=== PATIENT | male | born 1940 | race Caucasian/White ===

== ENCOUNTER 2017-04-04 23:31 | Emergency (ER) | payer MEDICARE, BC ==
[~2017-04-04 23:31] MED LIST: AMLODIPINE BESY1 TAB PO; AMLODIPINE BESY10 MG PO; ANTIVERT12.5 MG PO; ANTIVERT25 MG PO; COUMADIN4 M2 PO; COUMADIN7.5 M1 PO; K-Dur 20MEQ20 MEQ PO; K-TAB20 MEQ PO; LASIX40 MG PO; LISINOPRIL/HCTZ1 TA1 PO; LISINOPRIL/HCTZ1 TA3 PO; LISINOPRIL2.5 MG PO; LOTRISONE CREAM15 GM TP; MELOXICAM7.5 MG PO; METOPROLOL SUCC50 M2 PO; METOPROLOL SUCC50 MG PO; NEXIUM40 MG PO; NORVASC10 MG PO; PANTOPRAZOLE40 MG PO; PERCOCET 325 MG1 TA6 PO; POTASSIUM20 MEQ PO; PRAVACHOL40 MG PO; PRAVASTATIN SOD40 MG PO; PRILOSEC20 MG PO; VITAMIN D5000 I3 PO; VITAMIN D5000 IU PO; WARFARIN4 MG PO
[2017-04-04 23:36] VITALS: BP 155/78
[2017-04-05 00:17] LABS: BILIRUBIN 1+ (NEGATIVE); BLOOD 3+ (NEGATIVE); CLARITY CLOUDY (CLEAR); COLOR BROWN (YELLOW); GLUCOSE NEGATIVE (NEGATIVE); KETONE TRACE (NEGATIVE); LEUKO ESTERASE NEGATIVE (NEGATIVE); NITRITE POSITIVE (NEGATIVE); PROTEIN 3+ (NEGATIVE); SPECIFIC GRAVITY >= 1.030 (1.005-1.030)
[2017-04-05 00:35] LABS: BACTERIA 2+; RBC TNTC rbc/hpf (0-2); URINE REFLEX COMMENT YES (NO)
[2017-04-05 00:41] LABS: BASO % 0.4 % (0.0-1.0); EOS # 0.1 10*3/uL (0.0-0.4); EOS % 1.1 % (1.0-4.0); HEMATOCRIT 49.3 % (42.0-52.0); HEMOGLOBIN 15.6 g/dl (14.0-18.0); LYMPH # 1.8 10*3/uL (1.3-4.4); LYMPH % 19.3 % (27.0-41.0); MEAN CELL VOLUME 91.6 fl (80.0-94.0); MEAN CORPUSCULAR HGB CONC 31.6 g/dl (33.0-37.0); MEAN PLATELET VOLUME 10.7 fl (9.6-12.3); MONO # 0.9 10*3/uL (0.1-1.0); MONO % 9.8 % (3.0-9.0); NEUT # 6.5 10*3/uL (2.3-7.9); PLATELET COUNT AUTOMATED 197 10*3/uL (130-400); RED BLOOD COUNT 5.38 10*6/uL (4.50-5.90); RED CELL DISTRI WIDTH 13.7 % (0-14.5); WHITE BLOOD COUNT 9.5 10*3/uL (4.8-10.8)
[2017-04-05 00:52] LABS: PROTHROMBIN TIME 33.7 SECONDS (9.0-12.4)
[2017-04-05 00:57] LABS: ALBUMIN 3.2 gm/dl (3.1-4.5); ALKALINE PHOSPHATASE 85 U/L (45-117); BILIRUBIN, TOTAL 0.6 mg/dl (0.2-1.0); BUN 13 mg/dl (7-24); CARBON DIOXIDE 30 mmol/L (21-32); CHLORIDE 110 mmol/L (98-107); EST GLOM FILT AFRICAN AMERICAN > 60 ml/min; GLUCOSE 117 mg/dL (65-99); SGOT/AST 18 IU/L (3-35); SGPT/ALT 18 U/L (12-78); SODIUM 145 mmol/L (136-145); TOTAL PROTEIN 6.7 gm/dL (6.4-8.2)
[2017-04-05 00:58] LABS: TROPONIN I < 0.015 ng/ml (<0.045)
[2017-04-05] MEDS ORDERED: LEVOFLOXACIN500 MG PO (01:26)
== END 2017-04-05 02:17 | disposition home or self-care (01) ==
LOC: ED 23:31 → EDHOLD 04-05 01:21 → ED 04-05 01:21
PROVIDERS: Emergency Medicine Emergency Medical Services
DX: N39.0 Urinary tract infection, site not specified (principal); R31.9 Hematuria, unspecified; J18.9 Pneumonia, unspecified organism; I50.9 Heart failure, unspecified; Z90.49 Acquired absence of other specified parts of digestive tract; Z79.01 Long term (current) use of anticoagulants; Z79.899 Other long term (current) drug therapy

== ENCOUNTER → 2017-06-02 | Outpatient (CLI) | payer MEDICARE, BC ==
[~2017-06-02] MED LIST changes: +LEVOFLOXACIN500 MG PO
== END | disposition home or self-care (01) ==
LOC: US 17:06
DX: M79.89 Other specified soft tissue disorders (principal)

== ENCOUNTER 2017-12-03 21:09 | Inpatient (IN) | payer MEDICARE, BC ==
[~2017-12-03] VITALS: Ht 182.9 cm; Wt 133.0 kg
--- NOTE | ~2017-12-03 | WRIGHTHP ---
[place], [place] PATIENT HISTORY AND PHYSICAL EXAM NAME: NOLAN DUVALL [facility] #: [id number] UNIT #: [id number] ROOM: 408 DOCTOR: TONYA ARENAS MD BIRTHDATE: [birth year] DOS: 12/03/2017 HISTORY OF PRESENT ILLNESS: The patient is 77 years old, not known to me. The patient comes in with complaints of left-sided chest pain. He denies having any fever, any chills, any cough, any sputum production. He does not have any abdominal pain, nausea, any emesis. The patient says that he has had increased leg edema and has had Unna boot placement, but the left leg has been red for the last few days. He denies having any nausea, any emesis. PAST MEDICAL HISTORY: Significant for; 1. Benign hypertension. 2. Osteoarthritis, primary. 3. Mixed hyperlipidemia. 4. Chronic lymphedema. 5. Vitamin D deficiency. 6. Chronic atrial fibrillation. MEDICATIONS: Metoprolol 50 b.i.d., potassium 20 daily, Pravachol 40 daily, warfarin 7.5, Lotrisone cream for local application and Motrin 800 t.i.d. SOCIAL HISTORY: Nonsmoker. He has history of smoking for a few years when he was in his 20s. He denies using any alcohol, except for a couple of beers on a Thursday. He is , has 2 grown children. His father at the age of 32 of meningitis. Mom lived into the 80s and had cancer. PHYSICAL EXAMINATION: GENERAL: He is awake and alert and oriented. VITAL SIGNS: Blood pressure is 142/84, pulse of 99, respirations 20, temperature 97.9. LUNGS: Diminished breath sounds. No wheezes, rales, rhonchi heard. HEART: Regular. ABDOMEN: Obese. EXTREMITIES: Without any edema. MUSCULOSKELETAL: There is some tenderness in the left-sided chest wall on pressure. ASSESSMENT AND PLAN: 1. The rebound tenderness in the chest wall is most likely atypical chest pain, could be musculoskeletal. He is on Motrin, which I do not want to give in combination with Coumadin, so we will give him local moist heat. 2. High risk for heart disease with chest pain. Cardiology consultation has been obtained and probably will need a stress test. Echocardiogram has been ordered. 3. Left leg cellulitis. Jose Juan wrap will be ordered along with antibiotics. 4. Chronic atrial fibrillation, controlled. Protime is therapeutic. Coumadin dosage continued. [place], [place] PATIENT HISTORY AND PHYSICAL EXAM NAME: NOLAN DUVALL UNIT #: [id number] ROOM: [facility] DOCTOR: TONYA ARENAS MD BIRTHDATE: [birth year] TONYA ARENAS MD CM:HISPHYS:PATIENT HISTORY AND PHYSICAL EXAMINATION 5 9 TONYA ARENAS MD 12/04/17899 interface
[2017-12-03 21:19] VITALS: BP 157/90
[2017-12-03 21:32] LABS: BASO % 0.3 % (0.0-1.0); EOS # 0.1 10*3/uL (0.0-0.4); EOS % 0.7 % (1.0-4.0); HEMATOCRIT 48.1 % (42.0-52.0); HEMOGLOBIN 15.2 g/dl (14.0-18.0); LYMPH # 2.4 10*3/uL (1.3-4.4); LYMPH % 17.8 % (27.0-41.0); MEAN CELL VOLUME 90.8 fl (80.0-94.0); MEAN CORPUSCULAR HGB 28.7 pg (27.0-31.0); MEAN CORPUSCULAR HGB CONC 31.6 g/dl (33.0-37.0); MONO # 1.1 10*3/uL (0.1-1.0); MONO % 8.5 % (3.0-9.0); NEUT # 9.6 10*3/uL (2.3-7.9); NEUT % 72.3 % (47.0-73.0); PLATELET COUNT AUTOMATED 219 10*3/uL (130-400); RED CELL DISTRI WIDTH 14.2 % (0-14.5); WHITE BLOOD COUNT 13.3 10*3/uL (4.8-10.8)
[2017-12-03 21:37] VITALS: BP 151/94
[2017-12-03 21:42] LABS: ACT PARTIAL THROMBO TIME 36.8 SECONDS (20.8-31.5); INTERNATIONAL NORM RATIO 2.4 (2.0-3.5)
[2017-12-03 21:50] LABS: ALBUMIN 3.3 gm/dl (3.1-4.5); ALKALINE PHOSPHATASE 99 U/L (45-117); BUN 15 mg/dl (7-24); CHLORIDE 106 mmol/L (98-107); CREATININE 1.09 mg/dL (0.70-1.30); SGOT/AST 19 IU/L (3-35); SGPT/ALT 17 U/L (12-78); SODIUM 141 mmol/L (136-145); TOTAL PROTEIN 7.1 gm/dL (6.4-8.2); TROPONIN I 0.015 ng/ml (<0.045)
[2017-12-03 22:04] VITALS: BP 134/81
[2017-12-03] MEDS ORDERED: METOPROLOL SUCC50 M2 PO (22:18)
[2017-12-03] MEDS ORDERED: WARFARIN SODIU7.5 MG PO (22:20)
[2017-12-03] MEDS ORDERED: PRAVACHOL40 MG PO (22:21)
[2017-12-03] MEDS ORDERED: K-TAB20 MEQ PO (22:22)
[2017-12-03 23:45] VITALS: BP 142/84
[2017-12-04] MEDS ORDERED: IBUPROFEN600 MG PO (00:07)
[2017-12-04 08:00] VITALS: BP 137/86
[2017-12-04 12:00] VITALS: BP 130/95; BP 150/98
[2017-12-04 16:00] VITALS: BP 158/100
[2017-12-04 20:00] VITALS: BP 137/97
[2017-12-05] VITALS: BP 129/86
[2017-12-05 08:00] VITALS: BP 168/84
[2017-12-05 12:00] VITALS: BP 160/78
[2017-12-05 16:00] VITALS: BP 117/77
[2017-12-05] MEDS ORDERED: KEFLEX500 M1 PO (19:01)
== END 2017-12-05 19:30 | disposition home or self-care (01) | DRG 603 ==
LOC: ED 21:09 → EDHOLD 22:03 → 4E 22:46
PROVIDERS: Student in an Organized Health Care Education/Training Program
DX: L03.116 Cellulitis of left lower limb (principal); I48.2 Chronic atrial fibrillation; I11.0 Hypertensive heart disease with heart failure; I50.9 Heart failure, unspecified; R07.89 Other chest pain; M19.90 Unspecified osteoarthritis, unspecified site; E78.2 Mixed hyperlipidemia; I89.0 Lymphedema, not elsewhere classified; E66.9 Obesity, unspecified; D72.829 Elevated white blood cell count, unspecified; Z82.49 Family history of ischemic heart disease and other diseases of the circulatory system; Z79.899 Other long term (current) drug therapy; Z87.01 Personal history of pneumonia (recurrent); Z87.440 Personal history of urinary (tract) infections; Z90.49 Acquired absence of other specified parts of digestive tract; Z80.8 Family history of malignant neoplasm of other organs or systems; Z68.39 Body mass index [BMI] 39.0-39.9, adult

== ENCOUNTER 2017-12-22 22:16 | Inpatient (IN) | payer MEDICARE, BC ==
[~2017-12-22] VITALS: Ht 182.9 cm; Wt 133.0 kg
--- NOTE | ~2017-12-22 | PR ---
[place], [place] PROGRESS NOTE [id number] UNIT #: [id number] ROOM: 405 DOCTOR: TONYA ARENAS MD BIRTHDATE: [birth year] DOS: 12/26/2017 SUBJECTIVE: The patient is about the same, does not have any new complaints. PHYSICAL EXAMINATION: GENERAL: He is awake and alert and oriented, states he had a good night sleep. VITAL SIGNS: Blood pressure is 136/62, pulse of 80, respirations 19, temperature 98.5. LUNGS: Diminished breath sounds. No wheezes heard this morning. HEART: Irregular. ABDOMEN: Obese. EXTREMITIES: Jose Juan wrapping bilateral. ASSESSMENT AND PLAN: 1. Acute combination systolic, diastolic congestive heart failure, which is resolved. Chest x-ray unremarkable. 2. Adult failure to thrive with inability to ambulate, for placement to [facility] this morning. 3. Chronic atrial fibrillation with long-term use of anticoagulants. Protime on the high side. Coumadin on hold. Restart at a later date. TONYA ARENAS MD CM:PNTRANS [id number] TONYA ARENAS MD 12/26/17 2100 interface
--- NOTE | ~2017-12-22 | PR ---
[place], [place] PROGRESS NOTE [id number] UNIT #: [id number] ROOM: 405 DOCTOR: TONYA ARENAS MD BIRTHDATE: [birth year] DOS: SUBJECTIVE: The patient is doing fine without any complaints. OBJECTIVE: VITAL SIGNS: Graphic trend shows blood pressure of 143/91, pulse of 91, respirations 19, temperature 98.1. LUNGS: Clear. HEART: Irregular. ABDOMEN: Obese, soft. EXTREMITIES: Trace edema bilaterally. LABORATORY DATA: Urine culture 25,000 colonies of Proteus vulgaris, which is resistant to Ceftin, but sensitive to Bactrim. BMP: Glucose 98, BUN 14, creatinine 0.84. Electrolytes were normal. Protime has INR of 4.6. Blood cultures, no bacterial growth. ASSESSMENT AND PLAN: 1. Adult failure to thrive. The patient is awaiting placement to [place] after the 3 nights stay. 2. Combined systolic, diastolic congestive heart failure, improving. 3. The patient has already been evaluated by Dr. Lundberg and he does not feel there is an underlying pneumonia, so no antibiotics need to be given. Urinalysis is only showing 25,000 colonies, most likely not an underlying infection, so does not need to be treated with antibiotics. 4. Benign hypertension, controlled. 5. Chronic atrial fibrillation, controlled, but since the protime is high, Coumadin is on hold. TONYA ARENAS MD CM:PNTRANS TONYA ARENAS MD 12/25/1735 interface
--- NOTE | ~2017-12-22 | CON ---
[place], [place] REPORT OF CONSULTATION NAME: NOLAN DUVALL [facility] #: [id number] UNIT #: [id number] ROOM: 405 DOCTOR: ROSIE DAVENPORT MD BIRTHDATE: [birth year] DOS: 12/24/2017 PULMONARY CONSULTATION, ASSESSMENT AND MANAGEMENT CONSULTATION REQUESTED BY: Dr. Lundberg. REASON FOR CONSULTATION: For assessment of symptoms of a right lower lobe pneumonia. HISTORY OF PRESENT ILLNESS: This is a 77-year-old white male who has been admitted under care of Dr. Lundberg on the date of 12/23/2017. The patient has been admitted to the hospital. He has been noted with having symptoms of pain, which has been described in the lower back for this patient with gradual worsening. The pain has been reported without radiation. The patient does have some symptoms of shortness of breath. He does have symptoms of coughing with wheezing as well. The cough has been noted mostly nonproductive. He denies symptoms of chest pain or any hemoptysis. Because of progressive weakness, the patient has been noted recurrent fall at home. He has been assessed and reported with pneumonia in the right lower lobe as well. He was also noted with edema of the extremities. REVIEW OF SYSTEMS: CONSTITUTIONAL: The patient was reporting symptoms of fatigue, but there were no symptoms of fever or chills reported. EYES: Denies burning, redness, tenderness, discharge. EAR, NOSE, THROAT SYMPTOM: Denies sore throat, hoarseness, otalgia, postnasal drainage or epistaxis. CARDIOVASCULAR: Increased edema of the lower extremities, symptoms of palpitations or any angina pain. GASTROINTESTINAL SYMPTOMS: Denies dysphagia, nausea, vomiting, diarrhea, abdominal pain, hematemesis, melena or hematochezia. Denies abnormal weight loss, history of chronic obesity. He denies symptoms of dysphagia. GENITOURINARY SYMPTOMS: Denies dysuria, suprapubic pain or hematuria. MUSCULOSKELETAL SYMPTOM: No acute joint pain, redness, or tenderness. Noted without any acute deformities. SKIN: Denies lesions or rashes. CENTRAL NERVOUS SYSTEM: Denies dizziness, headache, diplopia, but noted generalized fatigue and weakness. Denies symptoms of seizures or tingling sensation of the lower extremities. Remaining systems were reviewed with the patient, they were noted all negative. PAST MEDICAL HISTORY: 1. The patient was known with history of chronic obesity, BMI of 39. 2. History of hypercholesterolemia. 3. Chronic atrial fibrillation. 4. Essential hypertension. 5. Gastroesophageal reflux. 6. History of vertigo. 7. History of congestive heart failure, diastolic dysfunction. [place], [place] REPORT OF CONSULTATION NAME: NOLAN DUVALL UNIT #: [id number] ROOM: 405 DOCTOR: ROSIE DAVENPORT MD BIRTHDATE: [birth year] SOCIAL HISTORY: The patient reported , has 2 children. Smoking for the patient was noted since teenager, a pack of cigarettes per day that was discontinued 20 years ago. History of alcohol use, illicit drug use. PAST SURGICAL HISTORY: Reported for laparoscopic cholecystectomy. MEDICATIONS: Current administered medication noted use of potassium chloride, omeprazole, Colace, simvastatin, metoprolol succinate, and other p.r.n. medication for medical management and other symptoms. DRUG ALLERGY HISTORY: Noted no known drug allergies. PHYSICAL EXAMINATION: GENERAL: A 77-year-old male who has been currently lying on the bed, comfortable without any distress. Height of 6 feet, weight of 293 pounds, BMI 39.8. VITAL SIGNS: For the patient, which has been recorded showed the temperature noted as normal since admission. The respiratory recorded 18-20, heart rate of 89-91, blood pressure 130/77-141/85. Intake for the patient as 1400 mL and output 600 mL recorded without Jane catheter. Pulse oxygen saturation of the patient on room air was 88% on 3 liters cannula 98%. HEENT: Head was atraumatic. Moderate obese. NECK: Supple. Decreased posterior pharyngeal space. CARDIOVASCULAR: S1, S2 is audible. LUNGS: Noted with moderate decreased breath sounds for the patient with questionable crackles in the right lung base. ABDOMEN: Soft, nontender with obesity. EXTREMITIES: The patient currently wrapped with the Jose Juan bandage secondary to edema. Further could not perform because of that. MUSCULOSKELETAL: No acute deformities was visible. SKIN: Visible skin, otherwise noted without any lesions or any rashes. CENTRAL NERVOUS SYSTEM: Limited examination; however, generally weak and fatigue was noted. LABORATORY DATA: CBC for the patient of 12/22/2017 was noted with normal WBC count, hemoglobin 12.9 and hematocrit 41.9, platelet count 354,000. PT/PTT for the patient was noted with INR of 4.8, which is about the therapeutic range with PTT 44.7. The CMP of the patient 12/22/2017, normal BUN and creatinine. AST of 53. Alkaline phosphatase 273. Lipase was 974. C-reactive protein 2.96, normal troponin. BMP of the patient that was done this morning showed normal BUN and creatinine, glucose 119, CO2 34. The blood culture for this patient, which was done 2 sets on 12/22/2017 was noted without any abnormal bacterial growth so far. The urine culture of the patient was noted with light gram-negative bacilli 25,000 colony forming units. The chest x-ray personally reviewed for this patient shows somewhat hyperinflation for the patient noted with a small area of atelectasis is likely and/or infiltration. There was no evidence of large pulmonary infiltration. IMPRESSION: 1. The patient who has been currently admitted to the hospital, mostly with the [place], [place] REPORT OF CONSULTATION NAME: NOLAN DUVALL UNIT #: [id number] ROOM: 405 DO[facility] B[facility] [birth year] pain in the lower back for the patient with small area of atelectasis. The current findings were not noted consistent with acute pneumonia. 2. Edema of the lower extremity related to congestive heart failure, diastolic dysfunction is causing mainly the shortness of breath. 3. Clinical assessment possibility of chronic obstructive pulmonary disease would be considered with current chest x-ray, assessment for the patient and the tobacco use. 4. History of other medical problem. The patient has been noted previously, currently being treated appropriately with all the necessary medication. 5. History of atrial fibrillation, treated with beta fernanda, but the patient was not getting any anticoagulation long-term for the patient at this time, reason was unknown. PLAN OF MANAGEMENT: At this time, the patient would not be requiring any treatment for the patient at this time and the finding does not appear to be consistent with acute pneumonia. Bronchodilator will be ordered for the patient to help clear up the atelectasis. Repeat another chest x-ray in the morning. Mucinex will be ordered for this patient as well to help clear up secretions. Other supportive therapy, plan of management and care plan. Additional treatment changes if necessary will be done after the assessment for the patient of the chest x-ray. Symptomatic management and other problem of the patient will be continued including the edema of the lower extremities. ROSIE GODINEZ MD CM:CONSTR:REPORT OF CONSULTATION 1447 12/25/17 0206 interface
--- NOTE | ~2017-12-22 | PR ---
[place], [place] PROGRESS NOTE NAME: NOLAN DUVALL UNIT #: [id number] ROOM: 405 DOCTOR: BRANDON GRAF MD BIRTHDATE: [birth year] DOS: 12/24/2017 SUBJECTIVE: The patient is very weak, still falling at the hospital. OBJECTIVE: VITAL SIGNS: Blood pressure 145/83, heart rate 95 beats per minute, breathing 20 times per minute, temperature 98.4 degrees Fahrenheit. GENERAL APPEARANCE: The patient is alert and oriented x 3, in no visible distress, except for morbid obesity and generalized weakness. HEENT AND NECK: Exam within normal limits. CARDIOVASCULAR SYSTEM: Heart rate is regular in rate and rhythm. S1 and S2 normally audible. LUNGS: Clear to auscultation. ABDOMEN: Soft, nontender. No obvious organomegaly. Bowel sounds are present. EXTREMITIES: Without significant cyanosis or edema. IMPRESSION AND PLAN: 1. The patient with old age, morbid obesity, generalized weakness and advanced adult failure to thrive with recurrent falls. Finally, the patient is agreeing to go to [facility] facility for rehabilitation. The patient has hematoma in the right flank from falling at home. 2. The patient working with Physical Therapy for adult failure to thrive. 3. Acute combined systolic, diastolic type congestive heart failure with some increased shortness of breath. Dr. Lundberg, the supervisor laundry will evaluate him. 4. Right lower lobe patchy infiltrate, compatible with pneumonia. Dr. Lundberg to evaluate. 5. Elevated lipase level, repeated today, from uncertain etiology because the patient is not complaining of any pains in the pancreatic area. 6. INR elevated at 4.9, is improving towards therapeutic range with Coumadin being on hold. 7. Chronic atrial fibrillation. The patient with multiple falls. He is not a good candidate for treatment with anticoagulation anymore because he is falling and also has a hematoma in the right flank area. The patient's Coumadin has been stopped. 8. Benign essential hypertension, with controlled blood pressures. 9. Mixed hyperlipidemia, followed and treated. 10. The patient working with Physical Therapy. [place], [place] PROGRESS NOTE NAME: NOLAN DUVALL UNIT #: [id number] ROOM: 405 DOCTOR: BRANDON GRAF MD BIRTHDATE: [birth year] BRANDON GRAF MD CM:MAR 17 [id number] BRANDON GRAF MD 12/24/171954 interface
--- NOTE | ~2017-12-22 | DS ---
[place], [place] DISCHARGE SUMMARY [id number] #: [id number] ROOM: 405 DOCTOR: TONYA ARENAS MD BIRTHDATE: [birth year] DOS: 12/26/2017 EXPECTED DATE OF DISCHARGE: 12/26/2017 after 3-night stay. DIAGNOSES: 1. Adult failure to thrive. 2. Inability to ambulate. 3. Recent negative stress test. 4. Chronic atrial fibrillation, on long-term use of anticoagulants. The patient's protime is elevated, Coumadin on hold. Repeat protime to be ordered on Thursday morning, then consider restarting the medicine. 5. Benign hypertension. 6. Morbid obesity. 7. Mixed hyperlipidemia. DISCHARGE MEDICATIONS: Lotrisone cream for local application, metoprolol 50 b.i.d., Pravachol 40 daily, potassium 40 daily, omeprazole 20 daily, warfarin on hold. HOSPITAL COURSE: A 77-year-old patient was brought to the Emergency Room with difficulty ambulating. Please refer to H and P dictated by Dr. Lundberg for details. After admission, the patient had blood cultures and urine cultures ordered. Blood cultures come back negative. Urine culture showed 25,000 colonies, which is not considered an infection. Chest x-ray showed right lower lobe atelectasis but Dr. Lundberg felt this is not a pneumonia, so the patient does not need to be on antibiotics. Labs all fairly within normal limits. The patient has been encouraged to go to a rehab and he is agreeable to go to [place], waiting for precertification. After the 3 nights' stay is over, the patient should be able to go to correction in the morning. TONYA ARENAS MD CM:DISCHARG [id number] TONYA ARENAS MD 12/25/1716 interface
--- NOTE | ~2017-12-22 | WRIGHTHP ---
[place], [place] PATIENT HISTORY AND PHYSICAL EXAM NAME: NOLAN DUVALL [facility] #: [id number] UNIT #: [id number] ROOM: 405 DOCTOR: BRANDON GRAF MD BIRTHDATE: [birth year] DOS: 12/23/2017 HISTORY OF PRESENT ILLNESS: The patient is a 77-year-old gentleman with a past medical history of: 1. Morbid obesity. 2. Adult failure to thrive. 3. Benign essential hypertension. 4. Mixed hyperlipidemia. 5. Stasis dermatitis of both legs, which is chronic. 6. Vitamin D deficiency. 7. Chronic atrial fibrillation. 8. Mixed systolic, diastolic type CHF. The patient presented to the Emergency Department at [facility] with progressively increasing shortness of breath, generalized weakness and cough with purulent sputum. The patient was seen in the Emergency Department and found to have patchy infiltrate in the right upper lobe on the chest x-ray. The patient was having difficulty in walking and multiple falls at home. The patient was admitted to [facility] and he is complaining of generalized weakness and shortness of breath, but no chest pains, no dizziness or fainting episodes. No other GI or urinary symptoms. REVIEW OF SYSTEMS: LUNGS: Some increasing shortness of breath. GASTROINTESTINAL: No nausea, vomiting, diarrhea or constipation. CARDIOVASCULAR: No chest pains or palpitations. FAMILY HISTORY: Noncontributory. SOCIAL HISTORY: , lives at home with his . ALLERGIES: No known drug allergies. MEDICATIONS: Pravastatin, potassium, omeprazole, Colace, metoprolol. PHYSICAL EXAMINATION: GENERAL: Alert and oriented x 3, but a poor historian, in no visible distress, morbidly obese. VITAL SIGNS: Blood pressure 115/93, heart rate 82 beats per minute, breathing 20 times per minute, temperature 99.9 degrees Fahrenheit. HEENT AND NECK: Extraocular movements are intact. Sclerae are anicteric. Oral mucosa is moist and clean. No obvious facial weakness. Neck is supple without any lymphadenopathy. No thyromegaly. No JVD. No carotid arterial bruits. LUNGS: Clear to auscultation, somewhat decreased breath sounds, except for bibasilar crackles. CARDIOVASCULAR SYSTEM: Heart rate is irregularly irregular in rate and rhythm. S1, S2 audible. Heart sounds are distant. ABDOMEN: Obese. No obvious organomegaly. Bowel sounds are present. EXTREMITIES: Pigmentary changes, skin changes, which are chronic in both legs with 2-3+ bilateral leg and pedal edema. [place], [place] PATIENT HISTORY AND PHYSICAL EXAM NAME: NOLAN DUVALL UNIT #: [id number] ROOM: 405 DOCTOR: BRANDON GRAF MD BIRTHDATE: [birth year] CENTRAL NERVOUS SYSTEM: Alert and oriented x 3. Cranial nerves II-XII are intact. Speech is normal. The patient is able to move all extremities. Normal muscle strength. Deep tendon reflexes are equal on both sides. Plantars were downgoing. LABORATORY DATA: Normal serum electrolytes. Alkaline phosphatase of 273, lipase 974. C-reactive protein elevated to 2.9. Troponin I level was normal. INR elevated at 4.8. Hemoglobin 12.9. Lactic acid level was normal. IMPRESSION: 1. The patient with old age, morbid obesity, generalized weakness and adult failure to thrive with recurrent falls at home. The patient to work with Physical Therapy. 2. Stable Helper consult obtained for care home facility for physical rehabilitation. 3. Acute combined systolic, diastolic type congestive heart failure, to be evaluated and managed by Dr. Lundberg, the weeder has been consulted. 4. Right lower lobe patchy infiltrate, compatible with pneumonia, to be evaluated by Dr. Lundberg, the weeder and treated accordingly. There is no leukocytosis. The patient did have low-grade fever. 5. Some elevation of lipase without significant abdominal pains. I will repeat a lipase level. Uncertain etiology. 6. Mixed hyperlipidemia, to be followed and treated. 8. Chronic atrial fibrillation. The patient is anticoagulated with Coumadin. INR is elevated, so Coumadin is on hold and we will check protimes daily. 6. Benign essential hypertension. Blood pressure is to be monitored, treated and controlled. BRANDON GRAF MD CM:HISPHYS:PATIENT HISTORY AND PHYSICAL EXAMINATION 1715 06 BRANDON GRAF MD 12/23/17 180 interface
[~2017-12-22 22:16] MED LIST changes: +COUMADIN3 M1 PO; +IBUPROFEN600 MG PO; +KEFLEX500 M1 PO
[2017-12-22 22:20] VITALS: BP 144/100
[2017-12-22 23:20] LABS: BASO % 0.3 % (0.0-1.0); EOS # 0.1 10*3/uL (0.0-0.4); EOS % 0.9 % (1.0-4.0); HEMATOCRIT 41.9 % (42.0-52.0); HEMOGLOBIN 12.9 g/dl (14.0-18.0); LYMPH # 1.1 10*3/uL (1.3-4.4); LYMPH % 12.1 % (27.0-41.0); MEAN CELL VOLUME 92.7 fl (80.0-94.0); MEAN CORPUSCULAR HGB 28.5 pg (27.0-31.0); MEAN CORPUSCULAR HGB CONC 30.8 g/dl (33.0-37.0); MEAN PLATELET VOLUME 10.8 fl (9.6-12.3); MONO # 1.1 10*3/uL (0.1-1.0); NEUT # 6.6 10*3/uL (2.3-7.9); NEUT % 72.2 % (47.0-73.0); PLATELET COUNT AUTOMATED 354 10*3/uL (130-400); RED BLOOD COUNT 4.52 10*6/uL (4.50-5.90); RED CELL DISTRI WIDTH 15.8 % (0-14.5); WHITE BLOOD COUNT 9.1 10*3/uL (4.8-10.8)
[2017-12-22 23:36] LABS: ACT PARTIAL THROMBO TIME 44.7 SECONDS (20.8-31.5)
[2017-12-22 23:38] LABS: INTERNATIONAL NORM RATIO 4.8 (2.0-3.5)
[2017-12-22 23:39] LABS: ALBUMIN 3.1 gm/dl (3.1-4.5); ALKALINE PHOSPHATASE 273 U/L (45-117); BUN 18 mg/dl (7-24); CHLORIDE 109 mmol/L (98-107); CREATININE 1.16 mg/dL (0.70-1.30); LIPASE 974 U/L (73-393); POTASSIUM 4.4 mmol/L (3.5-5.1); SGOT/AST 52 IU/L (3-35); SGPT/ALT 64 U/L (12-78); SODIUM 145 mmol/L (136-145); TOTAL PROTEIN 6.6 gm/dL (6.4-8.2); TROPONIN I 0.018 ng/ml (<0.045)
[2017-12-23 01:28] LABS: BILIRUBIN 1+ (NEGATIVE); BLOOD 3+ (NEGATIVE); CLARITY SL CLOUDY (CLEAR); COLOR YELLOW (YELLOW); GLUCOSE NEGATIVE (NEGATIVE); KETONE TRACE (NEGATIVE); LEUKO ESTERASE NEGATIVE (NEGATIVE); NITRITE NEGATIVE (NEGATIVE); PH 5.5 (5.0-9.0); SPECIFIC GRAVITY 1.025 (1.005-1.030)
[2017-12-23 01:30] VITALS: BP 112/89
[2017-12-23 01:36] LABS: EPITHELIAL CELLS 15-20; RBC 41-50 rbc/hpf (0-2)
[2017-12-23] MEDS ORDERED: PRILOSEC20 M1 PO (01:49)
[2017-12-23 08:00] VITALS: BP 148/94
[2017-12-23 12:00] VITALS: BP 115/93
[2017-12-23 16:00] VITALS: BP 139/84
[2017-12-23 20:00] VITALS: BP 138/73
[2017-12-24] VITALS: BP 137/70
[2017-12-24 06:01] LABS: BUN 19 mg/dl (7-24); CHLORIDE 109 mmol/L (98-107); CREATININE 1.07 mg/dL (0.70-1.30); LIPASE 669 U/L (73-393); POTASSIUM 4.5 mmol/L (3.5-5.1); SODIUM 147 mmol/L (136-145)
[2017-12-24 06:12] LABS: BASO % 0.3 % (0.0-1.0); EOS # 0.1 10*3/uL (0.0-0.4); EOS % 1.8 % (1.0-4.0); HEMATOCRIT 38.7 % (42.0-52.0); HEMOGLOBIN 11.6 g/dl (14.0-18.0); LYMPH # 1.4 10*3/uL (1.3-4.4); LYMPH % 19.1 % (27.0-41.0); MEAN CORPUSCULAR HGB 28.8 pg (27.0-31.0); MONO # 1.1 10*3/uL (0.1-1.0); MONO % 14.8 % (3.0-9.0); NEUT # 4.5 10*3/uL (2.3-7.9); NEUT % 62.3 % (47.0-73.0); PLATELET COUNT AUTOMATED 285 10*3/uL (130-400); RED BLOOD COUNT 4.03 10*6/uL (4.50-5.90); RED CELL DISTRI WIDTH 15.9 % (0-14.5); WHITE BLOOD COUNT 7.2 10*3/uL (4.8-10.8)
[2017-12-24 07:20] LABS: INTERNATIONAL NORM RATIO 4.9 (2.0-3.5)
[2017-12-24 08:00] VITALS: BP 142/74
[2017-12-24 12:00] VITALS: BP 141/85
[2017-12-24 16:00] VITALS: BP 145/83
[2017-12-24 20:04] VITALS: BP 132/86
[2017-12-25] VITALS: BP 143/91
[2017-12-25 07:43] LABS: BUN 14 mg/dl (7-24); CHLORIDE 107 mmol/L (98-107); CREATININE 0.84 mg/dL (0.70-1.30); POTASSIUM 3.9 mmol/L (3.5-5.1); SODIUM 147 mmol/L (136-145)
[2017-12-25 07:56] LABS: INTERNATIONAL NORM RATIO 4.6 (2.0-3.5)
[2017-12-25 08:00] VITALS: BP 144/99
[2017-12-25] MEDS ORDERED: CEFUROXIME AXE250 MG PO (08:20)
[2017-12-25 12:00] VITALS: BP 155/97
[2017-12-25 16:00] VITALS: BP 150/94
[2017-12-25 20:00] VITALS: BP 128/61
[2017-12-26] VITALS: BP 136/62
[2017-12-26 07:32] LABS: BUN 14 mg/dl (7-24); CHLORIDE 106 mmol/L (98-107); CREATININE 0.86 mg/dL (0.70-1.30); POTASSIUM 3.9 mmol/L (3.5-5.1); SODIUM 144 mmol/L (136-145)
[2017-12-26 07:36] LABS: INTERNATIONAL NORM RATIO 3.3 (2.0-3.5)
[2017-12-26 07:59] VITALS: BP 140/64
== END 2017-12-26 11:47 | disposition other institution (70) | DRG 291 ==
LOC: ED 22:16 → EDHOLD 12-23 00:15 → 4E 12-23 00:15
PROVIDERS: Internal Medicine; Nurse Practitioner Family
DX: I50.41 Acute combined systolic (congestive) and diastolic (congestive) heart failure (principal); J96.20 Acute and chronic respiratory failure, unspecified whether with hypoxia or hypercapnia; I48.2 Chronic atrial fibrillation; J44.1 Chronic obstructive pulmonary disease with (acute) exacerbation; J98.11 Atelectasis; E66.01 Morbid (severe) obesity due to excess calories; Z79.01 Long term (current) use of anticoagulants; I11.0 Hypertensive heart disease with heart failure; R62.7 Adult failure to thrive; E78.2 Mixed hyperlipidemia; I87.2 Venous insufficiency (chronic) (peripheral); E55.9 Vitamin D deficiency, unspecified; F17.210 Nicotine dependence, cigarettes, uncomplicated; I87.8 Other specified disorders of veins; E78.00 Pure hypercholesterolemia, unspecified; K21.9 Gastro-esophageal reflux disease without esophagitis; Z68.39 Body mass index [BMI] 39.0-39.9, adult; Z91.81 History of falling; Z87.440 Personal history of urinary (tract) infections; Z87.01 Personal history of pneumonia (recurrent); Z79.899 Other long term (current) drug therapy; Z90.49 Acquired absence of other specified parts of digestive tract; Z86.14 Personal history of Methicillin resistant Staphylococcus aureus infection; Z80.9 Family history of malignant neoplasm, unspecified; S30.1XXA Contusion of abdominal wall, initial encounter; W18.39XA Other fall on same level, initial encounter; Y93.89 Activity, other specified; Y92.89 Other specified places as the place of occurrence of the external cause; Y99.8 Other external cause status

== ENCOUNTER 2018-06-01 14:07 | Inpatient (IN) | payer MEDICARE, BC ==
[~2018-06-01] VITALS: Ht 182.8 cm; Wt 119.4 kg
--- NOTE | ~2018-06-01 | PR ---
[place], [place] PROGRESS NOTE NAME: NOLAN DUVALL UNIT #: [id number] ROOM: 408 DOCTOR: BRANDON GRAF MD BIRTHDATE: [birth year] DOS: 06/03/2018 SUBJECTIVE: The patient is breathing much better and his swelling in his feet has improved. OBJECTIVE: VITAL SIGNS: Blood pressure 156/55, heart rate 70 beats per minute, breathing 20 times per minute, temperature 98.2 degrees Fahrenheit. GENERAL APPEARANCE: Morbid obesity, generalized weakness. HEENT AND NECK: Exam within normal limits. CARDIOVASCULAR SYSTEM: Heart rate is regular in rate and rhythm. S1 and S2 normally audible. LUNGS: Clear to auscultation. ABDOMEN: Soft, nontender. No obvious organomegaly. Bowel sounds are present. EXTREMITIES: Ankle and foot edema have improved. IMPRESSION: 1. The patient with acute congestive heart failure, increasing leg and pedal edema, all improving. 2. Acute over chronic mixed systolic, diastolic congestive heart failure, treated with IV Bumex, followed by Cardiology. 3. Advanced adult failure to thrive. The patient working with physical therapy. 4. Tinea pedis, some cellulitis and onychomycosis, evaluated by Podiatry and Infectious Diseases, being treated. 5. Gastroesophageal reflux disease and esophagitis, asymptomatic with omeprazole. 6. Chronic atrial fibrillation with controlled heart rates. The patient anticoagulated with apixaban. 7. Chronic hypokalemia, treated with extra potassium supplements. 8. Advanced adult failure to thrive. The patient going for longterm facility tomorrow after discharge from the hospital. 9. Mixed hyperlipidemia, treated with simvastatin. [place], [place] PROGRESS NOTE NAME: NOLAN DUVALL UNIT #: [id number] ROOM: 408 DOCTOR: BRANDON GRAF MD BIRTHDATE: [birth year] BRANDON GRAF MD CM:PNTRANS [id number] BRANDON GRAF MD 06/04/18 0331 interface
--- NOTE | ~2018-06-01 | DS ---
[place], [place] DISCHARGE SUMMARY NAME: NOLAN DUVALL [facility] #: [id number] UNIT #: [id number] ROOM: 408 DOCTOR: BRANDON GRAF MD BIRTHDATE: [birth year] DOS: 06/04/2018 DISCHARGE DIAGNOSES: 1. 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 2. Advanced adult failure to thrive. 3. Morbid obesity. 4. Tinea pedis and onychomycosis involving both feet. 5. Gastroesophageal reflux disease and esophagitis. 6. Chronic atrial fibrillation. 7. Chronic hypokalemia. 8. Advance adult failure to thrive. 9. Mixed hyperlipidemia. 10. Vitamin D deficiency. 11. History of cholecystectomy for cholelithiasis and choledocholithiasis. 12. Stasis dermatitis and chronic leg and pedal edema involving both legs. 13. Benign essential hypertension. HOSPITAL COURSE: The patient was admitted when sent over by his foot doctors for increased swelling in his feet. The patient was found to be in acute congestive heart failure and hypoxemic. The patient admitted and started on diuresis with IV Bumex and his congestive heart failure including leg edema improved and he is being discharged to senior care for rehabilitation. The patient has mixed systolic, diastolic type chronic congestive heart failure. Tinea pedis and onychomycosis treated per Infectious Disease recommendations. Advance adult failure to thrive. The patient working with physical therapy and going to [facility] for continued rehabilitation. Gastroesophageal reflux disease and esophagitis, asymptomatic with omeprazole. Chronic atrial fibrillation with controlled heart rates. The patient anticoagulated with apixaban. Benign essential hypertension, treated and controlled. Chronic hypokalemia, treated with supplements. Mixed hyperlipidemia, treated with simvastatin. LABORATORY DATA: Normal serum electrolytes. Blood sugar of 102. Normal CBC. Blood cultures were negative for DVT, venous Dopplers. Chest x-ray showing small amount of chronic scarring in the left lower lung, unchanged. DISCHARGE MANAGEMENT: The patient takes furosemide 20 mg daily, simvastatin 20 mg daily, potassium chloride 40 mEq daily, metoprolol 50 mg b.i.d., apixaban 2.5 mg b.i.d., omeprazole 20 mg a day, DuoNeb every 4-6 hours, Lamisil 1% cream applied to the nail on the feet. [place], [place] DISCHARGE SUMMARY NAME: NOLAN DUVALL UNIT #: [id number] ROOM: 408 DOCTOR: BRANDON GRAF MD BIRTHDATE: [birth year] BRANDON GRAF MD CM:KELECHI [id number] BRANDON GRAF MD 06/04/18 1858 interface
--- NOTE | ~2018-06-01 | PR ---
[place], [place] PROGRESS NOTE NAME: NOLAN DUVALL UNIT #: [id number] ROOM: 408 DOCTOR: BRANDON GRAF MD BIRTHDATE: [birth year] DOS: 06/02/2018 SUBJECTIVE: Starting to breathe slightly better, but still quite weak and having difficulty with ambulation. PHYSICAL EXAMINATION: GENERAL APPEARANCE: The patient is alert and oriented x 3, in no visible distress. VITAL SIGNS: Blood pressure 150/84, heart rate 84 beats per minute, breathing 20 times per minute, afebrile. HEENT AND NECK: Exam within normal limits. CARDIOVASCULAR SYSTEM: Heart rate is regular in rate and rhythm. S1 and S2 normally audible. LUNGS: Clear to auscultation. ABDOMEN: Obesity. Soft, nontender. No obvious organomegaly. Bowel sounds are present. EXTREMITIES: Chronic leg edema without significant cyanosis. Cellulitis involving both feet is improving. IMPRESSION: 1. Acute over chronic mixed systolic-diastolic type congestive heart failure, being evaluated by Cardiology and treated with IV Bumex. The patient's leg edema has improved as compared to yesterday. Serum electrolytes were normal. 2. Advanced adult failure to thrive, difficulty with ambulation. The patient working with physical therapy. 3. Chronic leg edema tinea pedis and cellulitis, being followed by Podiatry. 4. Gastroesophageal reflux disease and esophagitis, asymptomatic with omeprazole. 5. Chronic atrial fibrillation with controlled heart rates. The patient on cardiac surgeon and anticoagulated with apixaban. 6. Benign essential hypertension, treated and controlled. The patient on metoprolol. 7. Chronic hypokalemia, treated with extra potassium supplements. 8. Mixed hyperlipidemia, treated with simvastatin and followed with blood work. [place], [place] PROGRESS NOTE NAME: NOLAN DUVALL UNIT #: [id number] ROOM: 408 DOCTOR: BRANDON GRAF MD BIRTHDATE: [birth year] BRANDON GRAF MD CM:PNTRANS [id number] BRANDON GRAF MD 06/03/18 0633 interface
--- NOTE | ~2018-06-01 | WRIGHTHP ---
[place], [place] PATIENT HISTORY AND PHYSICAL EXAM NAME: NOLAN DUVALL [facility] #: [id number] UNIT #: [id number] ROOM: 408 DOCTOR: BRANDON GRAF MD BIRTHDATE: [birth year] DOS: 06/01/2018 HISTORY OF PRESENT ILLNESS: The patient is a 77-year-old gentleman with a past medical history of: 1. Benign essential hypertension. 2. Morbid obesity. 3. Mixed type hyperlipidemia. 4. Vitamin D deficiency. 5. History of cholecystectomy for cholelithiasis and choledocholithiasis. 6. History of mixed systolic, diastolic type congestive heart failure. 7. Chronic atrial fibrillation. 8. Stasis dermatitis in both legs, which is chronic. 9. Benign essential hypertension. 10. Advanced adult failure to thrive. The patient presented to the Emergency Department at [facility], sent over by his foot doctors for increased swelling in the legs, both feet, especially recently increased in the left ankle and foot with increased shortness of breath and wheezing. The patient's pulse ox had dropped to 90% at room air in the Emergency Department and he was diagnosed as having acute congestive heart failure and recommended for admission and further management. After admission, the patient is complaining of shortness of breath and wheezing for the last few days, increased swelling in both legs, especially the left foot and ankle. No complaints of chest pain, no dizziness or fainting episodes. No other GI or urinary symptoms, but generalized weakness. REVIEW OF SYSTEMS: RESPIRATORY: Increased shortness of breath and wheezing. GASTROINTESTINAL: No nausea, vomiting, diarrhea, constipation. CARDIOVASCULAR: Without chest pains or palpitations. FAMILY HISTORY: Noncontributory. SOCIAL HISTORY: . Denies smoking cigarettes, alcohol and drug abuse. HOME MEDICATIONS: Simvastatin, potassium, apixaban, metoprolol. PHYSICAL EXAMINATION: GENERAL: Alert and oriented x 3, in no visible distress, very weak, morbidly obese. HEENT AND NECK: Extraocular movements are intact. Sclerae are anicteric. Oral mucosa is moist and clean. No obvious facial weakness. Neck is supple without any lymphadenopathy. No thyromegaly. No JVD. No carotid arterial bruits. LUNGS: Clear to auscultation. No wheezing. No rhonchi. CARDIOVASCULAR SYSTEM: Heart auscultation was irregularly irregular in rate and rhythm. S1, S2 audible. ABDOMEN: Soft, nontender. No obvious organomegaly. Bowel sounds are present. No obvious herniation. EXTREMITIES: Chronic skin changes in lower extremity with 3+ leg and pedal edema with redness and cellulitis involving both feet. [place], [place] PATIENT HISTORY AND PHYSICAL EXAM NAME: NOLAN DUVALL UNIT #: [id number] ROOM: [facility] DOCTOR: BRANDON GRAF MD BIRTHDATE: [birth year] CENTRAL NERVOUS SYSTEM: Alert and oriented x 3. Cranial nerves II-XII are intact. Speech is normal. The patient is able to move all extremities. Normal muscle strength. Deep tendon reflexes are equal on both sides. Plantars were downgoing. LABORATORY DATA: Normal serum electrolytes. Blood sugar at 122. Venous Dopplers negative for DVT. IMPRESSION: 1. Advanced adult failure to thrive with deterioration. The patient to be started on physical therapy. We will take bedsore precautions, use an air mattress. 2. Acute mixed systolic, diastolic type congestive heart failure. The patient will need a repeat echocardiogram. I am consulting Cardiology to reevaluate him and I am starting him on IV Bumex and serum electrolytes will be monitored daily. 3. Cellulitis involving both feet, to be evaluated and treated by Infectious Disease specialist. 4. Gastroesophageal reflux disease and esophagitis, asymptomatic with omeprazole. 5. Chronic atrial fibrillation with controlled heart rates. The patient on a cardiac exercise physiologist and continued on anticoagulation with apixaban. 6. Benign essential hypertension, treated and controlled. I will continue his metoprolol. 7. Chronic hypokalemia, treated with potassium supplements, which is being continued. 8. Mixed hyperlipidemia, treated with simvastatin, which is being continued. BRANDON GRAF MD CM:HISPHYS:PATIENT HISTORY AND PHYSICAL EXAMINATION 05 41 BRANDON GRAF MD 06/01/182040 interface
--- NOTE | ~2018-06-01 | EKG ---
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
[2018-06-01 14:07] VITALS: BP 166/86
[~2018-06-01 14:07] MED LIST changes: +CEFUROXIME AXE250 MG PO; +PRILOSEC20 M1 PO
[2018-06-01 14:50] LABS: BASO % 0.4 % (0.0-1.0); EOS % 0.4 % (1.0-4.0); HEMATOCRIT 45.9 % (42.0-52.0); HEMOGLOBIN 14.4 g/dl (14.0-18.0); LYMPH # 1.6 10*3/uL (1.3-4.4); MEAN CORPUSCULAR HGB 28.9 pg (27.0-31.0); MEAN CORPUSCULAR HGB CONC 31.4 g/dl (33.0-37.0); MEAN PLATELET VOLUME 11.3 fl (9.6-12.3); MONO # 0.9 10*3/uL (0.1-1.0); MONO % 10.1 % (3.0-9.0); NEUT # 6.4 10*3/uL (2.3-7.9); NEUT % 70.7 % (47.0-73.0); PLATELET COUNT AUTOMATED 207 10*3/uL (130-400); RED BLOOD COUNT 4.99 10*6/uL (4.50-5.90); RED CELL DISTRI WIDTH 14.6 % (0-14.5)
[2018-06-01 14:59] LABS: INTERNATIONAL NORM RATIO 1.1 (2.0-3.5)
[2018-06-01 15:08] LABS: ALBUMIN 3.2 gm/dl (3.1-4.5); ALKALINE PHOSPHATASE 92 U/L (45-117); BUN 13 mg/dl (7-24); CHLORIDE 109 mmol/L (98-107); CREATININE 1.18 mg/dL (0.70-1.30); LIPASE 389 U/L (73-393); POTASSIUM 4.1 mmol/L (3.5-5.1); SGOT/AST 11 IU/L (3-35); SGPT/ALT 16 U/L (12-78); SODIUM 142 mmol/L (136-145); TOTAL PROTEIN 6.7 gm/dL (6.4-8.2)
[2018-06-01 15:18] LABS: TROPONIN I < 0.015 ng/ml (<0.045)
[2018-06-01 15:36] LABS: BILIRUBIN 1+ (NEGATIVE); BLOOD NEGATIVE (NEGATIVE); CLARITY SL CLOUDY (CLEAR); COLOR YELLOW (YELLOW); GLUCOSE NEGATIVE (NEGATIVE); KETONE TRACE (NEGATIVE); LEUKO ESTERASE NEGATIVE (NEGATIVE); NITRITE NEGATIVE (NEGATIVE); SPECIFIC GRAVITY 1.025 (1.005-1.030)
[2018-06-01 16:00] LABS: WBC 0-2 wbc/hpf (0-5)
[2018-06-01 16:01] LABS: BACTERIA TRACE; EPITHELIAL CELLS 0-2; MUCOUS 2+
[2018-06-01 16:10] VITALS: BP 160/95
[2018-06-01] MEDS ORDERED: PRILOSEC20 M1 PO (17:37)
[2018-06-01 18:32] VITALS: BP 160/92
[2018-06-01] MEDS ORDERED: ELIQUIS2.5 M1 PO (19:15)
[2018-06-01] MEDS ORDERED: TRAZODONE100 MG PO (19:59)
[2018-06-01 20:00] VITALS: BP 128/94
[2018-06-02] VITALS: BP 165/85
[2018-06-02 06:13] LABS: BASO % 0.3 % (0.0-1.0); EOS # 0.1 10*3/uL (0.0-0.4); EOS % 0.6 % (1.0-4.0); HEMATOCRIT 46.3 % (42.0-52.0); HEMOGLOBIN 14.2 g/dl (14.0-18.0); LYMPH # 1.9 10*3/uL (1.3-4.4); LYMPH % 20.4 % (27.0-41.0); MEAN CELL VOLUME 94.3 fl (80.0-94.0); MEAN CORPUSCULAR HGB 28.9 pg (27.0-31.0); MEAN CORPUSCULAR HGB CONC 30.7 g/dl (33.0-37.0); MEAN PLATELET VOLUME 10.9 fl (9.6-12.3); MONO % 10.7 % (3.0-9.0); NEUT # 6.4 10*3/uL (2.3-7.9); NEUT % 67.7 % (47.0-73.0); PLATELET COUNT AUTOMATED 208 10*3/uL (130-400); RED BLOOD COUNT 4.91 10*6/uL (4.50-5.90); RED CELL DISTRI WIDTH 14.4 % (0-14.5); WHITE BLOOD COUNT 9.4 10*3/uL (4.8-10.8)
[2018-06-02 06:37] LABS: BUN 11 mg/dl (7-24); CHLORIDE 106 mmol/L (98-107); CREATININE 1.21 mg/dL (0.70-1.30); POTASSIUM 3.9 mmol/L (3.5-5.1); SODIUM 147 mmol/L (136-145)
[2018-06-02 08:00] VITALS: BP 160/84
[2018-06-02 12:00] VITALS: BP 149/85
[2018-06-02 16:00] VITALS: BP 150/84; BP 158/114
[2018-06-02 20:00] VITALS: BP 141/92; BP 142/77
[2018-06-03] VITALS: BP 149/88
[2018-06-03 06:57] LABS: BASO % 0.3 % (0.0-1.0); EOS # 0.1 10*3/uL (0.0-0.4); EOS % 0.8 % (1.0-4.0); HEMATOCRIT 46.1 % (42.0-52.0); HEMOGLOBIN 13.9 g/dl (14.0-18.0); LYMPH # 1.5 10*3/uL (1.3-4.4); LYMPH % 16.2 % (27.0-41.0); MEAN CELL VOLUME 95.2 fl (80.0-94.0); MEAN CORPUSCULAR HGB 28.7 pg (27.0-31.0); MEAN CORPUSCULAR HGB CONC 30.2 g/dl (33.0-37.0); MEAN PLATELET VOLUME 11.4 fl (9.6-12.3); MONO % 11.1 % (3.0-9.0); NEUT # 6.5 10*3/uL (2.3-7.9); NEUT % 71.3 % (47.0-73.0); PLATELET COUNT AUTOMATED 210 10*3/uL (130-400); RED BLOOD COUNT 4.84 10*6/uL (4.50-5.90); RED CELL DISTRI WIDTH 14.8 % (0-14.5)
[2018-06-03 07:20] LABS: BUN 18 mg/dl (7-24); CHLORIDE 106 mmol/L (98-107); POTASSIUM 4.1 mmol/L (3.5-5.1); SODIUM 146 mmol/L (136-145)
[2018-06-03 08:00] VITALS: BP 150/80
[2018-06-03 12:00] VITALS: BP 156/55
[2018-06-03 16:00] VITALS: BP 154/87
[2018-06-03 20:00] VITALS: BP 148/102; BP 162/80
[2018-06-04] VITALS: BP 151/76
[2018-06-04] MEDS ORDERED: LOTRISONE 0.05%15 GM OU (00:18)
[2018-06-04 06:32] LABS: BASO # 0.1 10*3/uL (0.0-0.1); BASO % 0.5 % (0.0-1.0); EOS # 0.2 10*3/uL (0.0-0.4); EOS % 1.6 % (1.0-4.0); HEMATOCRIT 46.8 % (42.0-52.0); HEMOGLOBIN 14.5 g/dl (14.0-18.0); LYMPH # 1.8 10*3/uL (1.3-4.4); LYMPH % 18.5 % (27.0-41.0); MEAN CELL VOLUME 94.9 fl (80.0-94.0); MEAN CORPUSCULAR HGB 29.4 pg (27.0-31.0); MEAN PLATELET VOLUME 11.5 fl (9.6-12.3); MONO # 1.1 10*3/uL (0.1-1.0); MONO % 10.9 % (3.0-9.0); NEUT # 6.6 10*3/uL (2.3-7.9); PLATELET COUNT AUTOMATED 205 10*3/uL (130-400); RED BLOOD COUNT 4.93 10*6/uL (4.50-5.90); RED CELL DISTRI WIDTH 14.7 % (0-14.5); WHITE BLOOD COUNT 9.8 10*3/uL (4.8-10.8)
[2018-06-04 06:38] LABS: BUN 19 mg/dl (7-24); CHLORIDE 104 mmol/L (98-107); SODIUM 142 mmol/L (136-145)
[2018-06-04 08:00] VITALS: BP 144/96
[2018-06-04 12:00] VITALS: BP 139/82
[2018-06-04] MEDS ORDERED: FUROSEMIDE20 M1 PO (17:40)
[2018-06-04] MEDS ORDERED: Ipratropium Brom3 ML NEB (17:40)
== END 2018-06-04 18:24 | disposition other institution (70) | DRG 292 ==
LOC: ED 14:07 → 4E 16:26 → EDHOLD 16:26 → 4E 16:52
PROVIDERS: Internal Medicine; Nurse Practitioner Family
DX: I11.0 Hypertensive heart disease with heart failure (principal); L03.116 Cellulitis of left lower limb; L03.115 Cellulitis of right lower limb; E66.01 Morbid (severe) obesity due to excess calories; I07.1 Rheumatic tricuspid insufficiency; I48.2 Chronic atrial fibrillation; B35.3 Tinea pedis; B35.1 Tinea unguium; I50.43 Acute on chronic combined systolic (congestive) and diastolic (congestive) heart failure; J44.9 Chronic obstructive pulmonary disease, unspecified; E55.9 Vitamin D deficiency, unspecified; K21.0 Gastro-esophageal reflux disease with esophagitis; E87.6 Hypokalemia; E78.2 Mixed hyperlipidemia; R62.7 Adult failure to thrive; Z79.899 Other long term (current) drug therapy; Z87.440 Personal history of urinary (tract) infections; Z90.49 Acquired absence of other specified parts of digestive tract; Z80.9 Family history of malignant neoplasm, unspecified; Z87.891 Personal history of nicotine dependence; Z87.01 Personal history of pneumonia (recurrent); Z68.38 Body mass index [BMI] 38.0-38.9, adult

== ENCOUNTER 2019-06-04 07:47 | Emergency (ER) | payer MEDICARE, BC ==
[2019-06-04] VITALS (7 sets, daily range): BP systolic 134–191; BP diastolic 97–122
[~2019-06-04] VITALS: Ht 182.8 cm; Wt 123.9 kg
[~2019-06-04 07:47] MED LIST changes: +ELIQUIS2.5 M1 PO; +FUROSEMIDE20 M1 PO; +Ipratropium Brom3 ML NEB; +LOTRISONE 0.05%15 GM OU; +TRAZODONE100 MG PO
[2019-06-04 10:35] LABS: BILIRUBIN NEGATIVE (NEGATIVE); BLOOD TRACE-INTACT (NEGATIVE); CLARITY SL CLOUDY (CLEAR); COLOR YELLOW (YELLOW); GLUCOSE NEGATIVE (NEGATIVE); KETONE NEGATIVE (NEGATIVE); LEUKO ESTERASE NEGATIVE (NEGATIVE); NITRITE NEGATIVE (NEGATIVE)
[2019-06-04 10:40] LABS: BASO % 0.3 % (0.0-1.0); EOS % 0.4 % (1.0-4.0); HEMATOCRIT 49.3 % (42.0-52.0); HEMOGLOBIN 15.6 g/dl (14.0-18.0); LYMPH # 1.2 10*3/uL (1.3-4.4); LYMPH % 13.2 % (27.0-41.0); MEAN CELL VOLUME 95.7 fl (80.0-94.0); MEAN CORPUSCULAR HGB 30.3 pg (27.0-31.0); MEAN CORPUSCULAR HGB CONC 31.6 g/dl (33.0-37.0); MEAN PLATELET VOLUME 11.9 fl (9.6-12.3); MONO # 0.9 10*3/uL (0.1-1.0); NEUT % 75.5 % (47.0-73.0); PLATELET COUNT AUTOMATED 194 10*3/uL (130-400); RED BLOOD COUNT 5.15 10*6/uL (4.50-5.90); RED CELL DISTRI WIDTH 14.4 % (0-14.5); WHITE BLOOD COUNT 9.3 10*3/uL (4.8-10.8)
[2019-06-04 10:45] LABS: BACTERIA 1+; WBC 21-30 wbc/hpf (0-5)
[2019-06-04 10:51] LABS: BUN 22 mg/dl (7-24); CHLORIDE 110 mmol/L (98-107); CREATININE 1.17 mg/dL (0.70-1.30); POTASSIUM 4.2 mmol/L (3.5-5.1); SODIUM 145 mmol/L (136-145)
[2019-06-04 10:54] LABS: ACT PARTIAL THROMBO TIME 29.8 SECONDS (20.0-32.1); INTERNATIONAL NORM RATIO 1.1 (2.0-3.5)
--- NOTE | 2019-06-04 11:03 | NUR ---
Time: 1103 A 78 year old MALE admitted to [facility] under services of TONYA POLLARD MD. Pt. arrived via ambulance from ER. Chief complaint: BACK PAIN AFTER A FALL ON 06/03/19. ADRIANA GLYNN
--- NOTE | 2019-06-04 11:59 | NUR ---
PT IS NOT BEING ADMITTED HERE,HE IS BEING TRANSFERRED TO [facility] FOR NEUROLOGY CARE. HE HAS REMAINED AWAKE AND ALERT. HE HAS BEEN MEDICATED FOR ELEVATED BLOOD PRESSURE. I HAVE NOTIFIED HIS FAMILY MEMBERS THAT HE IS BEING TRANSFERRED. ANNABEL AGUSTIN
--- NOTE | 2019-06-04 12:21 | NUR ---
Transfer Out, from the Emergency Department - Stable This patient, NOLAN DUVALL, 78, [birth year], [id number], [id number], was examined by the Emergency Department physician, Dr. LILY WILKINS,NURIA and efforts were made to stabilize the patient. The patient's condition is stable. The reason for transfer is need higher level of care . The Emergency physician has made the decision to transfer the patient out. Refer to the ED physician's dictation for the family/back-up physician notified. The attending physician has spoken to the accepting physician at the receiving facility, [facility] . Refer to the ED physician's dictation. The receiving facility has space and qualified personnel to care for the patient, and has agreed to accept the patient. Proper equipment and trained personnel have been arranged. The mode of transport is ground. The agency is [facility]. The Emergency physician has spoken to the transport staff re: patient's condition and needs during transport. Copies of the medical record have been forwarded to the receiving facility, including: - Emergency Department record: - name, address, hospital number, age, next of kin - presenting problem - history of injury, past medical history - treatment, medications & route, fluid type & volume - lab and xray findings, films - physical findings - vitals signs -- prehospital, emergency, pre-transfer - preliminary diagnosis - status/condition - emergency medical services record - consent for transfer - authorization for record release - name of any involed physicians -- responsive or not - name and address of referring physician - name of contact physician at receiving facility - name of accepting physician at receiving facility Nursing report has been given to HANH AGUSTIN AT [facility]. Valuables include SHORTS AND GLASSES. and were given to RAPHAEL AMIN
== END 2019-06-04 12:19 | disposition short-term general hospital (02) ==
LOC: ED 07:47 → EDHOLD 10:38 → ED 10:38 → 5E 11:04 → EDHOLD 11:04 → ED 12:19
PROVIDERS: Emergency Medicine
DX: S06.300A Unspecified focal traumatic brain injury without loss of consciousness, initial encounter (principal); M54.5 Low back pain; R26.2 Difficulty in walking, not elsewhere classified; R19.4 Change in bowel habit; M79.89 Other specified soft tissue disorders; I48.91 Unspecified atrial fibrillation; I11.0 Hypertensive heart disease with heart failure; I50.9 Heart failure, unspecified; E78.5 Hyperlipidemia, unspecified; J44.9 Chronic obstructive pulmonary disease, unspecified; Z79.899 Other long term (current) drug therapy; Z87.891 Personal history of nicotine dependence; W19.XXXA Unspecified fall, initial encounter; Y93.89 Activity, other specified; Y92.89 Other specified places as the place of occurrence of the external cause; Y99.8 Other external cause status

== ENCOUNTER 2019-06-18 00:46 | Emergency (ER) | payer MEDICARE, BC ==
[~2019-06-18] VITALS: Wt 121.1 kg
[2019-06-18 02:46] VITALS: BP 137/72
== END 2019-06-18 02:49 | disposition home or self-care (01) ==
LOC: ED 00:46
DX: S80.212A Abrasion, left knee, initial encounter (principal); R51 Headache; I48.91 Unspecified atrial fibrillation; I11.0 Hypertensive heart disease with heart failure; I50.9 Heart failure, unspecified; J44.9 Chronic obstructive pulmonary disease, unspecified; E78.5 Hyperlipidemia, unspecified; Z79.899 Other long term (current) drug therapy; Z87.891 Personal history of nicotine dependence; W19.XXXA Unspecified fall, initial encounter; Y93.89 Activity, other specified; Y92.128 Other place in nursing home as the place of occurrence of the external cause; Y99.8 Other external cause status

== ENCOUNTER 2019-07-11 16:50 | Inpatient (IN) | payer MEDICARE, BC ==
[~2019-07-11] VITALS: Ht 182.9 cm; Wt 118.6 kg
--- NOTE | ~2019-07-11 | WRIGHTHP ---
[place], [place] PATIENT HISTORY AND PHYSICAL EXAM NAME: NOLAN DUVALL [facility] #: [id number] UNIT #: [id number] ROOM: 406 DOCTOR: TONYA ARENAS MD BIRTHDATE: [birth year] DOS: 07/11/2019 HISTORY OF PRESENT ILLNESS: The patient is 78 years old. He lives at home, was discharged from [facility] on Thursday where he was admitted for physical therapy. The patient says after release, he felt good. He has been walking around using a walker, but yesterday the visiting nurses came in and noticed that his blood pressure was high, so he was sent out. He denies having any chest pains, palpitations, does not have any fever or chills, does not have any abdominal pain, nausea and emesis and has been taking all his medications regularly. PAST MEDICAL HISTORY: Significant for: 1. Last hospitalization in May 2018 with congestive heart failure. 2. Benign hypertension with severe left ventricular hypertrophy. The ejection fraction of 50% and diastolic dysfunction. 3. Adult failure to thrive with recent stay at [facility]. 4. Chronic atrial fibrillation, long-term use of anticoagulants. 5. Mixed hyperlipidemia. 6. Recent morbid obesity. MEDICATIONS: He is on are breathing treatments with DuoNeb q. 4, metoprolol 50 b.i.d., omeprazole 20 daily, potassium 20 daily, Pravachol 40 daily. SOCIAL HISTORY: Nonsmoker, does not use any alcohol, lives at home. His lives with him. His has history of CVA and is nonverbal. He is taken care of by his daughter and his son-in-law who lives across the street. PHYSICAL EXAMINATION: GENERAL: He is awake and alert and oriented, in no distress, answers questions appropriately. VITAL SIGNS: Pressure is 168/93, pulse of 70, respirations 20, temperature 98.0. LUNGS: Diminished breath sounds. HEART: Regular. ABDOMEN: Obese, soft, nontender. EXTREMITIES: Trace edema. There is no evidence of any tinea pedis. He had that previously during his last hospitalization. ASSESSMENT AND PLAN: 1. Benign hypertension, poorly controlled with no evidence of congestive heart failure, but significant diastolic dysfunction is noticed and left ventricular hypertrophy is also noticed. The patient will be continued on the metoprolol, but addition of Norvasc today, also add a low dose of diuretics. 2. Adult failure to thrive. The patient has completed physical therapy recently at a retirement. We will get a physical therapy evaluation, but I believe he is stable and can be discharged home today and continue visiting nurses and physical therapy and occupational therapy at home. 3. Mixed hyperlipidemia. Continue medications. [place], [place] PATIENT HISTORY AND PHYSICAL EXAM NAME: NOLAN DUVALL UNIT #: [id number] ROOM: [facility] DOCTOR: TONYA ARENAS MD BIRTHDATE: [birth year] TONYA ARENAS MD CM:HISPHYS:PATIENT HISTORY AND PHYSICAL EXAMINATION 3 2 TONYA ARENAS MD 07/12/1955 interface
--- NOTE | ~2019-07-11 | EKG ---
[place], [place] ELECTROCARDIOGRAM REPORT NAME: NOLAN DUVALL UNIT #: [id number] ROOM: 406 DOCTOR: BRIAN DRAFT REPORT BIRTHDATE: [birth year] [facility] Test Date: 2019-07-11 Test Time: 17:30:38 Pat Name: NOLAN DUVALL Department: Room: 406 Gender: M Tack Welder: Citlalli Toney : 1940 Requested By: JO-ANN COLON Order Number: [id number] Reading MD: Soren Fay MD Measurements Intervals [place] Rate: 82 P: [place]: QRS: -61 QRSD: 123 T: 9 QT: 399 QTc: 466 Interpretive Statements Atrial fibrillation Ventricular premature complex Nonspecific IVCD with LAD Electronically Signed On 07-13-2019 4:11:40 PDT by Soren Fay MD CM:EKGRPT:ELECTROCARDIOGRAM REPORT 1730 [id number] JO-ANN AYALA DRAFT REPORT JO-ANN COLON DO
[2019-07-11 16:51] VITALS: BP 169/93
[2019-07-11 17:46] LABS: ACT PARTIAL THROMBO TIME 26.5 SECONDS (20.0-32.1); INTERNATIONAL NORM RATIO 1.1 (2.0-3.5)
[2019-07-11 17:53] LABS: ALBUMIN 3.2 gm/dl (3.1-4.5); ALKALINE PHOSPHATASE 126 U/L (45-117); BUN 19 mg/dl (7-24); CHLORIDE 107 mmol/L (98-107); CREATININE 1.14 mg/dL (0.70-1.30); LIPASE 502 U/L (73-393); POTASSIUM 3.7 mmol/L (3.5-5.1); SGOT/AST 16 IU/L (3-35); SGPT/ALT 17 U/L (12-78); SODIUM 141 mmol/L (136-145); TOTAL PROTEIN 6.8 gm/dL (6.4-8.2)
[2019-07-11 17:56] LABS: TROPONIN I < 0.015 ng/ml (<0.045)
[2019-07-11 18:02] LABS: BASO % 0.3 % (0.0-1.0); EOS # 0.1 10*3/uL (0.0-0.4); EOS % 1.1 % (1.0-4.0); HEMATOCRIT 48.9 % (42.0-52.0); HEMOGLOBIN 15.3 g/dl (14.0-18.0); LYMPH # 1.7 10*3/uL (1.3-4.4); LYMPH % 15.9 % (27.0-41.0); MEAN CELL VOLUME 96.8 fl (80.0-94.0); MEAN CORPUSCULAR HGB 30.3 pg (27.0-31.0); MEAN CORPUSCULAR HGB CONC 31.3 g/dl (33.0-37.0); MEAN PLATELET VOLUME 11.2 fl (9.6-12.3); MONO % 9.6 % (3.0-9.0); NEUT # 7.7 10*3/uL (2.3-7.9); NEUT % 72.3 % (47.0-73.0); PLATELET COUNT AUTOMATED 183 10*3/uL (130-400); RED BLOOD COUNT 5.05 10*6/uL (4.50-5.90); RED CELL DISTRI WIDTH 14.2 % (0-14.5); WHITE BLOOD COUNT 10.6 10*3/uL (4.8-10.8)
[2019-07-11 19:04] VITALS: BP 139/92
[2019-07-11 19:31] VITALS: BP 139/92
[2019-07-11 19:57] VITALS: BP 162/108
[2019-07-12 04:00] VITALS: BP 168/93
[2019-07-12] MEDS ORDERED: AMLODIPINE BESYL5 MG PO (08:27)
[2019-07-12] MEDS ORDERED: LASIX20 MG PO (08:34)
== END 2019-07-12 11:55 | disposition home health service (06) | DRG 305 ==
LOC: ED 16:50 → EDHOLD 18:34 → 4E 19:45
PROVIDERS: Emergency Medicine; ADMIT Internal Medicine
DX: I11.9 Hypertensive heart disease without heart failure (principal); R62.7 Adult failure to thrive; I48.2 Chronic atrial fibrillation; E78.2 Mixed hyperlipidemia; I73.9 Peripheral vascular disease, unspecified; E66.01 Morbid (severe) obesity due to excess calories; Z79.899 Other long term (current) drug therapy; Z82.3 Family history of stroke; Z68.35 Body mass index [BMI] 35.0-35.9, adult; Z79.01 Long term (current) use of anticoagulants

== ENCOUNTER 2019-09-12 19:39 | Inpatient (IN) | payer MEDICARE, BC ==
[~2019-09-12] VITALS: Ht 182.8 cm; Wt 119.8 kg
[~2019-09-12 19:39] MED LIST changes: +AMLODIPINE BESYL5 MG PO; +LASIX20 MG PO
[2019-09-12 19:45] VITALS: BP 142/82
[2019-09-12 20:46] LABS: BASO % 0.3 % (0.0-1.0); EOS # 0.2 10*3/uL (0.0-0.4); EOS % 2.6 % (1.0-4.0); HEMATOCRIT 47.8 % (42.0-52.0); HEMOGLOBIN 15.1 g/dl (14.0-18.0); LYMPH # 1.3 10*3/uL (1.3-4.4); LYMPH % 15.1 % (27.0-41.0); MEAN CELL VOLUME 96.6 fl (80.0-94.0); MEAN CORPUSCULAR HGB 30.5 pg (27.0-31.0); MEAN CORPUSCULAR HGB CONC 31.6 g/dl (33.0-37.0); MEAN PLATELET VOLUME 10.7 fl (9.6-12.3); MONO % 11.6 % (3.0-9.0); NEUT # 6.1 10*3/uL (2.3-7.9); NEUT % 69.7 % (47.0-73.0); PLATELET COUNT AUTOMATED 191 10*3/uL (130-400); RED BLOOD COUNT 4.95 10*6/uL (4.50-5.90); RED CELL DISTRI WIDTH 13.1 % (0-14.5); WHITE BLOOD COUNT 8.8 10*3/uL (4.8-10.8)
--- NOTE | 2019-09-12 21:01 | NUR ---
PATIENT STATES TO ME AT THIS TIME THAT HE FEELS BETTER AND DOES NOT WANT ALL THIS TESTING DONE. DR LAMBERT NOTIFIED AND CURRENTLY AT BEDSIDE TALKING WITH PATIENT.
[2019-09-12 21:02] LABS: ALBUMIN 2.8 gm/dl (3.1-4.5); ALKALINE PHOSPHATASE 176 U/L (45-117); BUN 17 mg/dl (7-24); CHLORIDE 107 mmol/L (98-107); CREATININE 1.11 mg/dL (0.70-1.30); POTASSIUM 3.9 mmol/L (3.5-5.1); SGOT/AST 339 IU/L (3-35); SGPT/ALT 133 U/L (12-78); SODIUM 143 mmol/L (136-145); TOTAL PROTEIN 6.4 gm/dL (6.4-8.2)
[2019-09-12 21:40] LABS: BILIRUBIN 1+ (NEGATIVE); BLOOD NEGATIVE (NEGATIVE); CLARITY CLEAR (CLEAR); COLOR YELLOW (YELLOW); GLUCOSE NEGATIVE (NEGATIVE); KETONE NEGATIVE (NEGATIVE); LEUKO ESTERASE NEGATIVE (NEGATIVE); NITRITE NEGATIVE (NEGATIVE); PH 6.5 (5.0-9.0)
[2019-09-12 21:46] LABS: BACTERIA 2+; RBC 0-2 rbc/hpf (0-2)
[2019-09-13] VITALS: BP 156/79
--- NOTE | 2019-09-13 00:38 | NUR ---
Time: 37 A 79 year old MALE admitted to under services of TONYA POLLARD MD. Pt. arrived via CART from ER. Chief complaint: ELEVATED TRANSAMINASE LEVEL, PANCREATITIS. PATIENT ORIENTED TO ROOM, BATHED, AND INSTRUCTED ALIGNMENT MECHANIC LIGHT. [address]
--- NOTE | 2019-09-13 00:55 | NUR ---
PATIENT HAS ESCORATION NOTED TO THE ALFRED AREA THAT ISBLANCHABLE. RED HEEL NOTED TO THE RIGHT FOOT THAT IS BLANCHABLE. NO OPEN WOUNDS NOTED.
[2019-09-13] MEDS ORDERED: LOPRESSOR50 M1 PO (01:12)
--- NOTE | 2019-09-13 01:12 | NUR ---
PATIENT'S MED REC UP TO DATE PER MED CLAIM HISTORY. PATIENT DOES NOT KNOW OWN MEDICATIONS.
[2019-09-13] MEDS ORDERED: TOPROL XL50 M1 PO (02:26)
--- NOTE | 2019-09-13 02:29 | NUR ---
PATIENT TAKEN TO XRAY FROM UNIT BY THIS NURSE AND AIDE. RETURNED TO ROOM AND MADE COMFORTABLE. NO S/S OF DISTRESS. PLACED BACK ON 3LNC, AND CALL LIGHT PLACED IN REACH. BED ALARM ARMED.
--- NOTE | 2019-09-13 06:21 | NUR ---
ATTEMPTED TO CONTACT DR MARTINEZ. LEFT VOICEMAIL.
--- NOTE | 2019-09-13 07:59 | NUR ---
DR MARTINEZ CALLED BACK WITH NEW ORDERS ALSO TO CALL HIM WITH RESULTS
[2019-09-13 08:00] VITALS: BP 127/73
--- NOTE | 2019-09-13 11:07 | NUR ---
PHYSICAL THERAPY Pt refused to work with therapy today, "just not today." Therapist able to attain prior level of function from patient. Patient was oriented to self, birthday, place and time. Pt told therapist he got on a treadmill for a short period of time 7x/week. He used a rollator and was independent with all ADLs. Ramp entry to his home. Pt also stated that he "didn't walk much" before coming to the hospital. Due to Pt refusal, therapist to attempt again tomorrow. Thank you Victoria Lopez, PT, DPT
--- NOTE | 2019-09-13 11:40 | NUR ---
SPOKE TO DR. MARTINEZ ABOUT REQUESTED RESULTS OF SONOGRAM. AND NEW ORDERS RECIEVED
[2019-09-13 12:00] VITALS: BP 126/72
--- NOTE | 2019-09-13 13:28 | NUR ---
Corn Husker in to talk to patient. Patient states lives at home with his . There are 0 steps in the home. Physician: Dr. Wes Lundberg Pharmacy: [facility] for short term medications and mail order for maintenance medications Home [facility] Patient's level of ADLs: MINIMAL ASSIST Patient has working utilities: yes DME: walker, nebulizer Follow-up physician's appointment after d/c: he prefers to make his own follow up appt after discharge Does patient want to access PORTAL?: no Discharge plan discussed with patient. He lives at home with his . He is independent in his ADLs and ambulates with a walker. Discussed short term SNF and he refuses. Discussed home health care services and he currently has [facility] at home which he would like to continue upon discharge. When medically stable he will be discharged to home with the resumption of his [facility]. His daughter will transport on discharge. HANH SILVA
[2019-09-13 16:00] VITALS: BP 107/59
[2019-09-13 20:00] VITALS: BP 124/80
[2019-09-14] VITALS (9 sets, daily range): BP systolic 105–129; BP diastolic 58–83
[2019-09-14 07:04] LABS: HEPATITIS B SURFACE AG Negative (Negative); HEPATITIS C VIRUS ANTIBODY 0.1 s/co (0.0-0.9)
[2019-09-14 07:20] LABS: ALBUMIN 2.8 gm/dl (3.1-4.5); BILIRUBIN, DIRECT 2.3 mg/dL (0.0-0.2); CREATININE 1.59 mg/dL (0.70-1.30); POTASSIUM 3.7 mmol/L (3.5-5.1); TOTAL PROTEIN 6.6 gm/dL (6.4-8.2)
--- NOTE | 2019-09-14 07:32 | NUR ---
ATTEMPTED TO CALL KARO THE NOK TO INFORM HER ON THE EGD BEING DONE TODAY ON THE PATIENT. THERE WAS NO ANSWER SO A VOICEMAIL WAS LEFT.
--- NOTE | 2019-09-14 08:42 | NUR ---
NEW ORDER RECIEVED FROM DR ARENAS FOR COLACE 100 BID.
--- NOTE | 2019-09-14 09:30 | NUR ---
PHYSICAL THERAPY Housekeeping in room. Will attempt later. Thank you Victoria Lopez, PT, DPT
--- NOTE | 2019-09-14 09:48 | NUR ---
Nutritional Support Services Note: Pt is NPO at this time due to Dx of pancreatitis, and EGD being done today. Will follow for advancement of PO intake. Desirae Santos Rdn Ld
--- NOTE | 2019-09-14 10:15 | NUR ---
SPOKE TO PATIENTS DAUGHTER KARO AND INFORMED HER OF THE PATIENT LEAVING THE FLOOR TO HAVE AN EGD DONE.
--- NOTE | 2019-09-14 10:15 | NUR ---
PHYSICAL THERAPY Pt unavailable. Off the floor for a EGD. Will attempt later. Thank you Victoria Lopez, PT, DPT
--- NOTE | 2019-09-14 10:40 | NUR ---
DR ARENAS CALLED IN AND GAVE NEW ORDERS FOR ELIQUIS 5MG BID
--- NOTE | 2019-09-14 14:41 | NUR ---
PHYSICAL THERAPY Pt peacefully sleeping in bed, snoring. Attempted to wake but Pt was sound asleep. Will attempt at later time. thank you Victoria Lopez, PT, DPT
[2019-09-15] VITALS: BP 126/68
--- NOTE | 2019-09-15 05:03 | NUR ---
24 HR chart check completed.
[2019-09-15 07:56] VITALS: BP 108/72
[2019-09-15 08:00] VITALS: BP 130/70
--- NOTE | 2019-09-15 10:30 | NUR ---
Cargo Service Supervisor in to see patient. No new needs or request at this time. When medically stable he will be discharged to home with the resumption of his [facility] services. PT recommending home health care services and patient remains agreeable.
--- NOTE | 2019-09-15 10:33 | NUR ---
PHYSICAL THERAPY physical therapy evaluation completed, 4E. Full details to follow. Low complexity determined after evaluation, [address]. PT to work on strength, endurance, transfers, safety, balance. Recommending home health at discharge. thank you Victoria Lopez, PT, DPT
--- NOTE | 2019-09-15 10:33 | NUR ---
ORDERS WERE RECIEVED FROM DR ARENAS TO RESUME SOFT DIET.
[2019-09-15 12:00] VITALS: BP 116/77; BP 91/75
--- NOTE | 2019-09-15 12:20 | NUR ---
PATIENT REFUSING TO REPOSITION ON EITHER SIDE. PATIENT STATED HE WANTED TO REMAIN ON HIS BACK. RATIONALE FOR REPOSITIONING EXPLAINED. PATIENT STILL REFUSING AT THIS TIME. PATIENT WAS UP AND WALKING AROUND WITH PHYSICAL THERAPY. HE DID WELL AND CAN NOW BE 1 ASSIST WITH WALKER TO THE BATHROOM.
[2019-09-15 16:00] VITALS: BP 124/75
[2019-09-15 20:00] VITALS: BP 118/73
[2019-09-16] VITALS: BP 105/63
[2019-09-16 06:02] LABS: BASO % 0.1 % (0.0-1.0); EOS % 0.4 % (1.0-4.0); HEMATOCRIT 45.4 % (42.0-52.0); HEMOGLOBIN 14.2 g/dl (14.0-18.0); LYMPH # 1.5 10*3/uL (1.3-4.4); LYMPH % 13.8 % (27.0-41.0); MEAN CELL VOLUME 97.6 fl (80.0-94.0); MEAN CORPUSCULAR HGB 30.5 pg (27.0-31.0); MEAN CORPUSCULAR HGB CONC 31.3 g/dl (33.0-37.0); MEAN PLATELET VOLUME 11.3 fl (9.6-12.3); MONO # 1.5 10*3/uL (0.1-1.0); MONO % 13.5 % (3.0-9.0); NEUT # 7.7 10*3/uL (2.3-7.9); PLATELET COUNT AUTOMATED 231 10*3/uL (130-400); RED BLOOD COUNT 4.65 10*6/uL (4.50-5.90); RED CELL DISTRI WIDTH 13.6 % (0-14.5); WHITE BLOOD COUNT 10.9 10*3/uL (4.8-10.8)
[2019-09-16 06:12] LABS: ALBUMIN 2.6 gm/dl (3.1-4.5); CREATININE 1.39 mg/dL (0.70-1.30); POTASSIUM 3.9 mmol/L (3.5-5.1); TOTAL PROTEIN 5.9 gm/dL (6.4-8.2)
--- NOTE | 2019-09-16 07:25 | NUR ---
ARRIVED ON SHIFT, INTRODUCED TO PATIENT, BEDSIDE REPORT RECEIVED, NO NEEDS VOICED AT THIS TIME, WHITE BOARD UPDATED.
--- NOTE | 2019-09-16 07:43 | NUR ---
Shift chart check completed.
[2019-09-16 08:00] VITALS: BP 130/70
--- NOTE | 2019-09-16 09:00 | NUR ---
Button Reclaimer in to see patient. No new needs or request at this time. When medically stable he will be discharged to home with the resumption of his [facility] services.
[2019-09-16 12:00] VITALS: BP 110/86
--- NOTE | 2019-09-16 13:20 | NUR ---
PHYSICAL THERAPY Patient seen this pm 1;1 for therapy visit and was resting supine in bed upon therapist arrival. Patient identified by name / and reports no new c/o's at this time. Patient transfers supine to sit EOB with SBA x 1 and tolerated B LE therex, all planes, x 20 reps each to increase LE strength. Patient needed v/c to reach full AROM, secondary to L LE weaker than R LE. Patient also completed several sit to stand transfers at bedside, SBA before returning to supine in bed. Patient presented with continuous IV treatment this session and remained in bed with call light, tray table and telephon. Will continue per POC as tolerated, total treatment time 16 minutes. Khoi Pérez, FLAT SPRING ASSEMBLER
[2019-09-16 16:00] VITALS: BP 125/79
--- NOTE | 2019-09-16 16:04 | NUR ---
PHYSICAL THERAPY CO-SIGN I approve of the Physical Therapy notes written above. Victoria Lopez, PT, DPT
[2019-09-16 20:00] VITALS: BP 150/98
[2019-09-17] VITALS: BP 135/89
[2019-09-17 01:00] VITALS: BP 128/76
--- NOTE | 2019-09-17 02:01 | NUR ---
24 HR chart check completed.
[2019-09-17 08:00] VITALS: BP 118/72
[2019-09-17] MEDS ORDERED: CEFUROXIME AXE250 MG PO (08:27)
[2019-09-17] MEDS ORDERED: PROTONIX40 MG PO (08:27)
[2019-09-17] MEDS ORDERED: PREDNISONE10 MG PO (08:27)
[2019-09-17 08:36] LABS: ALBUMIN 2.6 gm/dl (3.1-4.5); CHLORIDE 112 mmol/L (98-107); SGOT/AST 88 IU/L (3-35); SGPT/ALT 202 U/L (12-78); SODIUM 146 mmol/L (136-145)
[2019-09-17 08:39] LABS: ALKALINE PHOSPHATASE 156 U/L (45-117); BILIRUBIN, DIRECT 0.4 mg/dL (0.0-0.2); BUN 31 mg/dl (7-24); CREATININE 1.04 mg/dL (0.70-1.30); TOTAL PROTEIN 5.9 gm/dL (6.4-8.2)
--- NOTE | 2019-09-17 10:54 | NUR ---
pt refused satx he is going to be discharged
--- NOTE | 2019-09-17 12:39 | NUR ---
DC TO HOME WITH DTR DTR AWARE OF NEED TO FILL NEW SCRIPT THURSDAY HERE AT THE HOSPITAL DTR GIVEN XARELTO DOSE FOR TONIGHT AND TOMORROW PER DR ARENAS
--- NOTE | 2019-09-19 08:09 | NUR ---
Faxed home health resumption order to [facility]
--- NOTE | 2019-09-19 15:00 | NUR ---
Received call from [facility] regarding [facility] and patient didn't want to change.
== END 2019-09-17 12:39 | disposition home or self-care (01) | DRG 682 ==
LOC: ED 19:39 → 4E 23:58 → EDHOLD 23:58 → 4E 09-13 00:06
PROVIDERS: Internal Medicine; ADMIT Internal Medicine
PROC: 0DB78ZX Excision of Stomach, Pylorus, Via Natural or Artificial Opening Endoscopic, Diagnostic (ICD-10-PCS; principal; 2019-09-14)
DX: N17.9 Acute kidney failure, unspecified (principal); K85.90 Acute pancreatitis without necrosis or infection, unspecified; J44.1 Chronic obstructive pulmonary disease with (acute) exacerbation; K29.70 Gastritis, unspecified, without bleeding; R62.7 Adult failure to thrive; I11.0 Hypertensive heart disease with heart failure; I48.20 Chronic atrial fibrillation, unspecified; K74.69 Other cirrhosis of liver; E78.2 Mixed hyperlipidemia; I50.9 Heart failure, unspecified; Z91.81 History of falling; Z87.01 Personal history of pneumonia (recurrent); Z90.49 Acquired absence of other specified parts of digestive tract; Z87.440 Personal history of urinary (tract) infections; Z87.891 Personal history of nicotine dependence; Z68.35 Body mass index [BMI] 35.0-35.9, adult

== ENCOUNTER 2019-11-08 10:25 | Inpatient (IN) | payer MEDICARE, BC ==
[~2019-11-08] VITALS: Ht 182.9 cm; Wt 123.6 kg
[~2019-11-08 10:25] MED LIST changes: +LOPRESSOR50 M1 PO; +PREDNISONE10 MG PO; +PROTONIX40 MG PO; +TOPROL XL50 M1 PO
[2019-11-08 10:42] VITALS: BP 130/84
--- NOTE | 2019-11-08 10:42 | NUR ---
Time: 1041 A 79 year old MALE admitted to under services of DR. HOMAR WILKINS,BRANDON Nguyen Pt. arrived via wheel chair from [place]. Chief complaint: BILATERAL LOWER LEG EDEMA. DAR VALDEZ
--- NOTE | 2019-11-08 11:32 | NUR ---
MEDICATIONS VERIFIED WITH [facility] PHARMACIST.
--- NOTE | 2019-11-08 11:48 | NUR ---
TRIED CALLING DR YANG FOR CONSULT. WAS PUT ON HOLD FOR A LONG TIME AT BOTH THE OFFICE AND ANSWERING SERVICE. UNABLE TO SPEAK TO A PERSON.
--- NOTE | 2019-11-08 11:53 | NUR ---
CONSULTED PODIATRY. DR BELLO STATES THAT HE IS IN THE HOSPITAL AND WILL SEE HIM SOON.
--- NOTE | 2019-11-08 11:54 | NUR ---
UNABLE TO GET AN IV AT THIS TIME.
[2019-11-08] MEDS ORDERED: PRAVACHOL40 MG PO (13:45)
[2019-11-08] MEDS ORDERED: XARE20MG PO (13:46)
--- NOTE | 2019-11-08 14:37 | NUR ---
TUBI-GRASS FARMER APPLIED ORDERED.
--- NOTE | 2019-11-08 14:54 | NUR ---
IV IS NOT FLUSHING. DR GRAF NOTIFIED. DR GRAF RECCOMENDS A CENTRAL LINE. PATIENT REFUSES.
--- NOTE | 2019-11-08 15:00 | NUR ---
PATIENT IS AGREEING FOR CENTRAL LINE TO PLACED. DR MUNOZ NOTIFIED.
[2019-11-08 16:00] VITALS: BP 81/51
--- NOTE | 2019-11-08 19:00 | NUR ---
ASSUMED CARE FOR THIS PT AT THIS TIME. NO C/O VOICED AT PRESENT TIME. DR. LINN ATTEMPTING TO INSERT CENTRAL LINE AT THIS TIME.
[2019-11-08 21:00] VITALS: BP 128/92
--- NOTE | 2019-11-08 22:50 | NUR ---
DR. GRAF PHONED RE PT'S HOME MED BEING CONTINUED. CONTINUE ALL HOME MEDS EXCEPT HOLD LASIX, BMP QAM X3 DAYS, BUMEX 1MG IVP DAILY. MADE AWARE OF UNSUCCESSFUL ATTEMPTS FOR CENTRAL LINE. BUT FLOOR STAFF ABLE TO START PIV.
[2019-11-09] VITALS: BP 126/89
[2019-11-09 06:26] LABS: BUN 22 mg/dl (7-24); CHLORIDE 111 mmol/L (98-107); CREATININE 1.04 mg/dL (0.70-1.30); POTASSIUM 4.6 mmol/L (3.5-5.1); SODIUM 145 mmol/L (136-145)
[2019-11-09 08:00] VITALS: BP 122/84
[2019-11-09 16:00] VITALS: BP 122/42
[2019-11-09 20:00] VITALS: BP 144/88
[2019-11-10] VITALS: BP 155/98
[2019-11-10 06:37] LABS: BASO % 0.3 % (0.0-1.0); EOS # 0.2 10*3/uL (0.0-0.4); EOS % 1.6 % (1.0-4.0); HEMATOCRIT 46.7 % (42.0-52.0); HEMOGLOBIN 14.6 g/dl (14.0-18.0); LYMPH # 2.1 10*3/uL (1.3-4.4); LYMPH % 22.8 % (27.0-41.0); MEAN CELL VOLUME 93.8 fl (80.0-94.0); MEAN CORPUSCULAR HGB 29.3 pg (27.0-31.0); MEAN CORPUSCULAR HGB CONC 31.3 g/dl (33.0-37.0); MONO # 1.1 10*3/uL (0.1-1.0); MONO % 12.2 % (3.0-9.0); NEUT # 5.8 10*3/uL (2.3-7.9); NEUT % 62.7 % (47.0-73.0); PLATELET COUNT AUTOMATED 189 10*3/uL (130-400); RED BLOOD COUNT 4.98 10*6/uL (4.50-5.90); RED CELL DISTRI WIDTH 13.9 % (0-14.5); WHITE BLOOD COUNT 9.2 10*3/uL (4.8-10.8)
[2019-11-10 07:05] LABS: BUN 23 mg/dl (7-24); CHLORIDE 110 mmol/L (98-107); CREATININE 1.05 mg/dL (0.70-1.30); POTASSIUM 3.8 mmol/L (3.5-5.1); SODIUM 145 mmol/L (136-145)
[2019-11-10 08:00] VITALS: BP 132/76
--- NOTE | 2019-11-10 11:40 | NUR ---
PODIATRY IN LOOKING AT PT FOOT AT THIS TIME
--- NOTE | 2019-11-10 14:18 | NUR ---
Access Clinician in to talk to patient. Patient states lives at HOME with . There are FEW steps in the home. Physician: [facility] Pharmacy: [facility] Home health services: NONE Patient's level of ADLs: MODERATE ASSIST Patient has working utilities: YES DME: [facility] Follow-up physician's appointment after d/c: PREFERS TO MAKE OWN ON DISCHARGE Does patient want to access PORTAL?: NO Discharge plan PT LIVES AT HOME WITH HIS AND IS INDEPENDENT IN HIS CARE. STATES HE PLANS TO RETURN HOME ON DISCHARGE AND WILL HAVE NO NEW NEEDS. PT STATES HE HAS A RIDE HOME. WILL CONTINUE TO FOLLOW. . ROSEANNA ANGULO
--- NOTE | 2019-11-10 14:46 | NUR ---
Shift chart check completed.
[2019-11-10 16:00] VITALS: BP 134/78
[2019-11-10 20:00] VITALS: BP 132/74
[2019-11-11] VITALS: BP 134/91
--- NOTE | 2019-11-11 01:20 | NUR ---
PATIENT IS SLEEPING WITH EASY AND REGULAR RESPERS ON ROOM AIR. AWAKENES EASILY FOR ASSESSMENT. NO C/O OR S/S OF DISTRESS NOTED AT THIS TIME. BED IS LOW, LOCKED, AND CALL LIGHT IS WITHIN REACH, WILL CONTINUE TO MONITOR.
[2019-11-11 07:01] LABS: BUN 24 mg/dl (7-24); CHLORIDE 110 mmol/L (98-107); CREATININE 1.01 mg/dL (0.70-1.30); POTASSIUM 3.9 mmol/L (3.5-5.1); SODIUM 142 mmol/L (136-145)
[2019-11-11] MEDS ORDERED: KEFLEX500 M1 PO (09:32)
--- NOTE | 2019-11-11 09:46 | NUR ---
PHYSICAL THERAPY Chart reviewed attempted to see pt in his room for evaluation however refusing at this time. Pt states "I have been getting up just fine" using FWW in room. States he has a FWW at home and does not want or need any therapy at this time. Pt states he is leaving today. Renetta Knowles PT
--- NOTE | 2019-11-11 12:31 | NUR ---
PT CONTINUES TO DENY NEEDS AT HOME. STATES HE WILL GO HOME WITH AND DAUGHTER HELPS. WILL CONTINUE TO FOLLOW.
[2019-11-11 16:00] VITALS: BP 133/80
--- NOTE | 2019-11-11 17:40 | NUR ---
RECEIVED REPORT FROM NURSE JAYNE RN AT THIS TIME. AWAITING PTS ARRIVAL TO THE FLOOR.
--- NOTE | 2019-11-11 17:40 | NUR ---
CALLED AND GAVE REPORT TO YAZMIN ON FLOOR 5 WHO WILL BE TAKING THE PATIENT
--- NOTE | 2019-11-11 18:00 | NUR ---
PT TO THE FLOOR AT THIS TIME. RELAXING IN BED. ASSESMENT COMPLETE. NO SIGNS OF DISTRESS NOTED. RESPIRATIONS EASY AND REGULAR. CALL LIGHT WITHIN REACH. WILL CONTINUE TO MONITOR.
[2019-11-11 20:00] VITALS: BP 120/93
--- NOTE | 2019-11-11 20:08 | NUR ---
24 HR chart check completed.
--- NOTE | 2019-11-11 21:00 | NUR ---
RESTING IN BED WATCHING TV. RESPIRATIONS EASY. LUNGS DIMINISHED, CLEAR. PULSE OX 96% RA. BLE EDEMATOUS WITH WRAPS IN PLACE. CALL LIGHT WITHIN REACH. NO VOICED COMPLAINTS
[2019-11-12] VITALS: BP 125/82
--- NOTE | 2019-11-12 | NUR ---
SLEEPING. NO DISTRESS NOTED. RESPIRATIONS EASY. VSS. CALL LIGHT WITHIN REACH
--- NOTE | 2019-11-12 06:00 | NUR ---
SLEPT THROUGHOUT NIGHT WITH NO DISTRESS NOTED. RESPIRATIONS EASY. CALL LIGHT WITHIN REACH.
--- NOTE | 2019-11-12 06:46 | NUR ---
REQUESTED AND RECEIVED TYLENOL PER PRN ORDER FOR COMPLAINTS OF BLE PAIN RATING A 5. CALL LIGHT WITHIN REACH. WILL MONITOR FOR EFFECTIVENESS
[2019-11-12 08:00] VITALS: BP 140/77
--- NOTE | 2019-11-12 09:00 | NUR ---
Patient resting quietly with no c/o discomfort. Respirations easy and regular. Vital signs stable. No overt distress. MARIA DOLORES NASH
[2019-11-12 16:00] VITALS: BP 136/88
--- NOTE | 2019-11-12 16:12 | NUR ---
PT MEDICATED WITH PO TYLENOL PER PRN ORDER FOR C/O GENERALIZED PAIN/DISCOMFORT. WILL MONITOR EFFECTIVENESS.
[2019-11-12] MEDS ORDERED: BUMEX2.5 MG/10 IV (17:28)
[2019-11-12] MEDS ORDERED: KLOR-CON M2020 ME1 PO (17:28)
[2019-11-12] MEDS ORDERED: AUGMENTIN 875-875 MG PO (17:36)
--- NOTE | 2019-11-12 18:25 | NUR ---
Discharge instructions reviewed with patient/family. Patient receptive and verbalizes understanding. Follow-up care arranged. Written instructions given to patient/family. MARIA DOLORES NASH.
== END 2019-11-12 20:00 | disposition home or self-care (01) | DRG 299 ==
LOC: 4E 10:25 → 5E 11-11 17:15
PROVIDERS: ADMIT Internal Medicine
DX: I87.2 Venous insufficiency (chronic) (peripheral) (principal); I50.33 Acute on chronic diastolic (congestive) heart failure; L03.116 Cellulitis of left lower limb; I48.21 Permanent atrial fibrillation; L03.115 Cellulitis of right lower limb; E66.01 Morbid (severe) obesity due to excess calories; I11.0 Hypertensive heart disease with heart failure; R62.7 Adult failure to thrive; K75.81 Nonalcoholic steatohepatitis (NASH); K74.60 Unspecified cirrhosis of liver; J44.9 Chronic obstructive pulmonary disease, unspecified; E78.2 Mixed hyperlipidemia; K21.0 Gastro-esophageal reflux disease with esophagitis; E55.9 Vitamin D deficiency, unspecified; Z90.49 Acquired absence of other specified parts of digestive tract; Z87.891 Personal history of nicotine dependence; Z68.36 Body mass index [BMI] 36.0-36.9, adult

== ENCOUNTER 2020-04-15 15:38 | Emergency (ER) | payer MEDICARE, BC ==
[~2020-04-15] VITALS: Ht 182.8 cm; Wt 131.5 kg
[~2020-04-15 15:38] MED LIST changes: +AUGMENTIN 875-875 MG PO; +BUMEX2.5 MG/10 IV; +KLOR-CON M2020 ME1 PO; +XARE20MG PO
[2020-04-15 16:34] LABS: BILIRUBIN NEGATIVE (NEGATIVE); BLOOD NEGATIVE (NEGATIVE); CLARITY CLEAR (CLEAR); COLOR YELLOW (YELLOW); GLUCOSE NEGATIVE (NEGATIVE); KETONE NEGATIVE (NEGATIVE); LEUKO ESTERASE NEGATIVE (NEGATIVE); NITRITE NEGATIVE (NEGATIVE); PH 7.5 (5.0-9.0); SPECIFIC GRAVITY 1.015 (1.005-1.030); UROBILINOGEN 0.2 E.U./dl (0.2-1.0)
[2020-04-15 16:42] LABS: BASO % 0.4 % (0.0-1.0); EOS # 0.1 10*3/uL (0.0-0.4); EOS % 1.4 % (1.0-4.0); HEMATOCRIT 49.1 % (42.0-52.0); LYMPH # 1.8 10*3/uL (1.3-4.4); LYMPH % 21.5 % (27.0-41.0); MEAN CELL VOLUME 96.3 fl (80.0-94.0); MEAN CORPUSCULAR HGB 29.4 pg (27.0-31.0); MEAN CORPUSCULAR HGB CONC 30.5 g/dl (33.0-37.0); MEAN PLATELET VOLUME 10.7 fl (9.6-12.3); MONO # 0.9 10*3/uL (0.1-1.0); MONO % 10.2 % (3.0-9.0); NEUT # 5.5 10*3/uL (2.3-7.9); NEUT % 65.9 % (47.0-73.0); PLATELET COUNT AUTOMATED 208 10*3/uL (130-400); RED CELL DISTRI WIDTH 14.5 % (0-14.5); WHITE BLOOD COUNT 8.3 10*3/uL (4.8-10.8)
[2020-04-15 17:00] VITALS: BP 114/62
[2020-04-15 17:04] LABS: ALBUMIN 3.1 gm/dl (3.1-4.5); ALKALINE PHOSPHATASE 88 U/L (45-117); BUN 10 mg/dl (7-24); CHLORIDE 109 mmol/L (98-107); CREATININE 0.88 mg/dL (0.70-1.30); POTASSIUM 4.5 mmol/L (3.5-5.1); SGOT/AST 12 IU/L (3-35); SGPT/ALT 14 U/L (12-78); SODIUM 143 mmol/L (136-145); TOTAL PROTEIN 6.7 gm/dL (6.4-8.2)
[2020-04-15] MEDS ORDERED: BENADRYL ALLERG25 M5 PO (17:54)
== END 2020-04-15 18:15 | disposition home or self-care (01) ==
LOC: ED 15:38
PROVIDERS: Emergency Medicine
DX: R42 Dizziness and giddiness (principal); R06.02 Shortness of breath; G47.00 Insomnia, unspecified; J44.9 Chronic obstructive pulmonary disease, unspecified; I11.0 Hypertensive heart disease with heart failure; I50.9 Heart failure, unspecified; I48.91 Unspecified atrial fibrillation; Z79.899 Other long term (current) drug therapy; Z87.891 Personal history of nicotine dependence

== ENCOUNTER 2020-07-08 18:18 | Emergency (ER) | payer MEDICARE, BC ==
[~2020-07-08] VITALS: Ht 182.8 cm; Wt 117.9 kg
[~2020-07-08 18:18] MED LIST changes: +BENADRYL ALLERG25 M5 PO
[2020-07-08 18:25] VITALS: BP 151/86
[2020-07-09] MEDS ORDERED: LASIX20 MG PO (17:54)
== END 2020-07-08 18:50 | disposition home or self-care (01) ==
LOC: ED 18:18
DX: L98.419 Non-pressure chronic ulcer of buttock with unspecified severity (principal); I48.91 Unspecified atrial fibrillation; J44.9 Chronic obstructive pulmonary disease, unspecified; E78.5 Hyperlipidemia, unspecified; I50.9 Heart failure, unspecified; I11.0 Hypertensive heart disease with heart failure; Z87.891 Personal history of nicotine dependence; Z79.899 Other long term (current) drug therapy

== ENCOUNTER 2020-07-09 12:33 | Observation (INO) | payer MEDICARE, BC ==
[~2020-07-09] VITALS: Ht 182.8 cm; Wt 126.6 kg
[2020-07-09 12:36] VITALS: BP 154/92
[2020-07-09 12:56] LABS: BASO % 0.5 % (0.0-1.0); EOS # 0.1 10*3/uL (0.0-0.4); EOS % 0.7 % (1.0-4.0); HEMATOCRIT 50.6 % (42.0-52.0); LYMPH # 2.6 10*3/uL (1.3-4.4); LYMPH % 31.1 % (27.0-41.0); MEAN CELL VOLUME 92.8 fl (80.0-94.0); MEAN CORPUSCULAR HGB 28.8 pg (27.0-31.0); MEAN PLATELET VOLUME 10.4 fl (9.6-12.3); MONO % 11.9 % (3.0-9.0); NEUT # 4.6 10*3/uL (2.3-7.9); NEUT % 55.4 % (47.0-73.0); PLATELET COUNT AUTOMATED 215 10*3/uL (130-400); RED BLOOD COUNT 5.45 10*6/uL (4.50-5.90); RED CELL DISTRI WIDTH 14.5 % (0-14.5); WHITE BLOOD COUNT 8.3 10*3/uL (4.8-10.8)
[2020-07-09 13:07] LABS: ACT PARTIAL THROMBO TIME 28.4 SECONDS (20.0-32.1); INTERNATIONAL NORM RATIO 1.1 (2.0-3.5)
[2020-07-09 13:12] LABS: ALBUMIN 3.2 gm/dl (3.1-4.5); ALKALINE PHOSPHATASE 90 U/L (45-117); BUN 17 mg/dl (7-24); CHLORIDE 107 mmol/L (98-107); CREATININE 1.01 mg/dL (0.70-1.30); SGOT/AST 22 IU/L (3-35); SGPT/ALT 16 U/L (12-78); SODIUM 142 mmol/L (136-145); TOTAL PROTEIN 6.9 gm/dL (6.4-8.2)
[2020-07-09 13:15] LABS: TROPONIN I < 0.015 ng/ml (<0.045)
[2020-07-09 13:54] LABS: BILIRUBIN NEGATIVE; CLARITY CLOUDY (CLEAR); COLOR YELLOW (YELLOW); GLUCOSE NEGATIVE; KETONE NEGATIVE
[2020-07-09 13:55] LABS: BLOOD NEGATIVE (NEGATIVE); LEUKO ESTERASE TRACE (NEGATIVE); NITRITE NEGATIVE (NEGATIVE); PH 8.5 (5.0-9.0); SPECIFIC GRAVITY 1.015 (1.005-1.030)
[2020-07-09 13:59] LABS: EPITHELIAL CELLS 16-20
[2020-07-09 14:01] LABS: BACTERIA 3+; TRIP PHOS CRYSTALS 1+
[2020-07-09 15:04] VITALS: BP 146/90
[2020-07-09 16:00] VITALS: BP 152/94
[2020-07-09] MEDS ORDERED: LASIX20 MG PO (17:54)
[2020-07-09 20:00] VITALS: BP 159/93
[2020-07-09 20:30] VITALS: BP 142/76
[2020-07-10] VITALS: BP 139/89
[2020-07-10 08:00] VITALS: BP 133/76
[2020-07-10 11:56] VITALS: BP 145/89
[2020-07-10 16:00] VITALS: BP 128/78
[2020-07-10 20:00] VITALS: BP 129/74
[2020-07-11] VITALS: BP 120/64
[2020-07-11] MEDS ORDERED: LISINOPRIL2.5 MG PO (08:56)
[2020-07-11] MEDS ORDERED: LASIX40 MG PO (08:59)
== END 2020-07-11 10:19 | disposition home or self-care (01) ==
LOC: ED 12:33 → 5E 14:08 → EDHOLD 14:08 → 5E 14:08
PROVIDERS: Emergency Medicine; ADMIT Internal Medicine; ATTEND Internal Medicine
DX: R91.8 Other nonspecific abnormal finding of lung field (principal); J44.9 Chronic obstructive pulmonary disease, unspecified; I48.21 Permanent atrial fibrillation; M54.5 Low back pain; G89.29 Other chronic pain; R06.02 Shortness of breath

== ENCOUNTER 2020-12-21 09:08 | Observation (INO) | payer MEDICARE, BC ==
[~2020-12-21] VITALS: Ht 182.9 cm; Wt 136.2 kg
[2020-12-21 09:11] VITALS: BP 157/83
[2020-12-21 09:52] LABS: BASO % 0.4 % (0.0-1.0); EOS # 0.2 10*3/uL (0.0-0.4); EOS % 1.8 % (1.0-4.0); HEMATOCRIT 47.7 % (42.0-52.0); LYMPH # 1.7 10*3/uL (1.3-4.4); LYMPH % 20.7 % (27.0-41.0); MEAN CELL VOLUME 97.1 fl (80.0-94.0); MEAN CORPUSCULAR HGB 29.3 pg (27.0-31.0); MEAN CORPUSCULAR HGB CONC 30.2 g/dl (33.0-37.0); MEAN PLATELET VOLUME 10.7 fl (9.6-12.3); MONO % 11.7 % (3.0-9.0); NEUT # 5.4 10*3/uL (2.3-7.9); NEUT % 64.7 % (47.0-73.0); PLATELET COUNT AUTOMATED 233 10*3/uL (130-400); RED BLOOD COUNT 4.91 10*6/uL (4.50-5.90); RED CELL DISTRI WIDTH 13.9 % (0-14.5); WHITE BLOOD COUNT 8.4 10*3/uL (4.8-10.8)
[2020-12-21 10:03] LABS: ACT PARTIAL THROMBO TIME 27.6 SECONDS (20.0-32.1); INTERNATIONAL NORM RATIO 1.1 (2.0-3.5)
[2020-12-21 10:04] LABS: ALKALINE PHOSPHATASE 80 U/L (45-117); BUN 25 mg/dl (7-24); CHLORIDE 109 mmol/L (98-107); CPK 316 U/L (39-308); CREATININE 1.11 mg/dL (0.70-1.30); POTASSIUM 4.5 mmol/L (3.5-5.1); SGOT/AST 25 IU/L (3-35); SGPT/ALT 16 U/L (12-78); SODIUM 144 mmol/L (136-145); TOTAL PROTEIN 6.5 gm/dL (6.4-8.2)
[2020-12-21 10:05] LABS: TROPONIN I < 0.015 ng/ml (<0.045)
[2020-12-21 13:00] VITALS: BP 142/92
[2020-12-21] MEDS ORDERED: LASIX40 MG PO (13:40)
[2020-12-21 16:00] VITALS: BP 135/75
[2020-12-21 20:00] VITALS: BP 107/67
[2020-12-22] VITALS: BP 126/64
[2020-12-22 08:00] VITALS: BP 129/80
[2020-12-22 12:00] VITALS: BP 129/80
== END 2020-12-22 13:21 | disposition home or self-care (01) ==
LOC: ED 09:08 → EDHOLD 09:50 → 5E 11:24
PROVIDERS: Emergency Medicine; ADMIT Internal Medicine; ATTEND Internal Medicine
DX: I89.0 Lymphedema, not elsewhere classified (principal); I48.21 Permanent atrial fibrillation; J44.9 Chronic obstructive pulmonary disease, unspecified; I11.0 Hypertensive heart disease with heart failure; I50.9 Heart failure, unspecified; I87.8 Other specified disorders of veins; M21.42 Flat foot [pes planus] (acquired), left foot; M21.41 Flat foot [pes planus] (acquired), right foot; G47.00 Insomnia, unspecified; E78.5 Hyperlipidemia, unspecified; Z87.891 Personal history of nicotine dependence; Z79.899 Other long term (current) drug therapy

== ENCOUNTER 2021-02-20 22:24 | Inpatient (IN) | payer MEDICARE, BC ==
[~2021-02-20] VITALS: Ht 182.8 cm; Wt 125.2 kg
[2021-02-20 22:28] VITALS: BP 130/75
[2021-02-20 22:45] LABS: BASO % 0.3 % (0.0-1.0); EOS # 0.1 10*3/uL (0.0-0.4); EOS % 1.1 % (1.0-4.0); HEMATOCRIT 47.7 % (42.0-52.0); LYMPH # 2.4 10*3/uL (1.3-4.4); LYMPH % 25.9 % (27.0-41.0); MEAN CELL VOLUME 94.5 fl (80.0-94.0); MEAN CORPUSCULAR HGB 29.1 pg (27.0-31.0); MEAN CORPUSCULAR HGB CONC 30.8 g/dl (33.0-37.0); MEAN PLATELET VOLUME 10.9 fl (9.6-12.3); MONO % 11.1 % (3.0-9.0); NEUT # 5.7 10*3/uL (2.3-7.9); NEUT % 61.1 % (47.0-73.0); PLATELET COUNT AUTOMATED 270 10*3/uL (130-400); RED BLOOD COUNT 5.05 10*6/uL (4.50-5.90); RED CELL DISTRI WIDTH 14.7 % (0-14.5); WHITE BLOOD COUNT 9.3 10*3/uL (4.8-10.8)
[2021-02-20 22:56] VITALS: BP 111/84
[2021-02-20 23:05] LABS: ALBUMIN 3.1 gm/dl (3.1-4.5); ALKALINE PHOSPHATASE 89 U/L (45-117); BUN 18 mg/dl (7-24); CHLORIDE 107 mmol/L (98-107); POTASSIUM 4.1 mmol/L (3.5-5.1); SGOT/AST 17 IU/L (3-35); SGPT/ALT 13 U/L (12-78); SODIUM 142 mmol/L (136-145); TOTAL PROTEIN 6.8 gm/dL (6.4-8.2)
[2021-02-21 01:42] VITALS: BP 117/79
[2021-02-21] MEDS ORDERED: KLOR-CON M2020 ME1 PO (02:08)
[2021-02-21 02:15] VITALS: BP 118/86
[2021-02-21 06:32] LABS: BUN 16 mg/dl (7-24); CHLORIDE 105 mmol/L (98-107); CREATININE 1.22 mg/dL (0.70-1.30); POTASSIUM 4.1 mmol/L (3.5-5.1); SODIUM 143 mmol/L (136-145)
[2021-02-21 08:00] VITALS: BP 143/97
[2021-02-21 12:00] VITALS: BP 107/54
[2021-02-21 16:00] VITALS: BP 115/60
[2021-02-21 20:00] VITALS: BP 109/38
[2021-02-22] VITALS: BP 112/54
[2021-02-22 06:40] LABS: BUN 14 mg/dl (7-24); CHLORIDE 102 mmol/L (98-107); POTASSIUM 3.7 mmol/L (3.5-5.1); SODIUM 141 mmol/L (136-145)
[2021-02-22 08:00] VITALS: BP 119/65
[2021-02-22 09:21] LABS: BASO % 0.3 % (0.0-1.0); EOS # 0.1 10*3/uL (0.0-0.4); EOS % 0.8 % (1.0-4.0); HEMATOCRIT 49.4 % (42.0-52.0); LYMPH % 19.9 % (27.0-41.0); MEAN CELL VOLUME 97.1 fl (80.0-94.0); MEAN CORPUSCULAR HGB 28.9 pg (27.0-31.0); MEAN CORPUSCULAR HGB CONC 29.8 g/dl (33.0-37.0); MEAN PLATELET VOLUME 11.3 fl (9.6-12.3); MONO # 1.2 10*3/uL (0.1-1.0); NEUT # 6.8 10*3/uL (2.3-7.9); NEUT % 66.7 % (47.0-73.0); PLATELET COUNT AUTOMATED 226 10*3/uL (130-400); RED BLOOD COUNT 5.09 10*6/uL (4.50-5.90); RED CELL DISTRI WIDTH 14.6 % (0-14.5); WHITE BLOOD COUNT 10.2 10*3/uL (4.8-10.8)
[2021-02-22 16:00] VITALS: BP 106/56
[2021-02-22 20:00] VITALS: BP 116/68
[2021-02-23] VITALS: BP 113/65
[2021-02-23 06:00] LABS: BUN 16 mg/dl (7-24); CHLORIDE 105 mmol/L (98-107); CREATININE 1.01 mg/dL (0.70-1.30); POTASSIUM 3.7 mmol/L (3.5-5.1); SODIUM 143 mmol/L (136-145)
[2021-02-23 08:00] VITALS: BP 105/69
[2021-02-23 12:00] VITALS: BP 136/58
[2021-02-23 16:03] VITALS: BP 126/71
[2021-02-23 20:00] VITALS: BP 142/76
[2021-02-24] VITALS: BP 103/61
[2021-02-24 06:04] LABS: BUN 19 mg/dl (7-24); CHLORIDE 102 mmol/L (98-107); CREATININE 0.98 mg/dL (0.70-1.30); POTASSIUM 3.8 mmol/L (3.5-5.1); SODIUM 141 mmol/L (136-145)
[2021-02-24 08:00] VITALS: BP 98/59
[2021-02-24 12:00] VITALS: BP 112/50
[2021-02-24 16:00] VITALS: BP 98/57
[2021-02-24 20:00] VITALS: BP 119/77
[2021-02-25 00:06] VITALS: BP 96/60
[2021-02-25 07:08] LABS: BUN 25 mg/dl (7-24); CHLORIDE 105 mmol/L (98-107); CREATININE 1.14 mg/dL (0.70-1.30); POTASSIUM 4.6 mmol/L (3.5-5.1); SODIUM 139 mmol/L (136-145)
[2021-02-25] MEDS ORDERED: TERBINAFINE250 MG PO (07:49)
[2021-02-25] MEDS ORDERED: CEPHALEXIN500 M1 PO (07:50)
[2021-02-25 08:00] VITALS: BP 128/72
[2021-02-25 09:48] LABS: BASO # 0.1 10*3/uL (0.0-0.1); BASO % 0.5 % (0.0-1.0); EOS # 0.2 10*3/uL (0.0-0.4); LYMPH # 2.1 10*3/uL (1.3-4.4); LYMPH % 20.1 % (27.0-41.0); MEAN CELL VOLUME 96.6 fl (80.0-94.0); MEAN PLATELET VOLUME 10.8 fl (9.6-12.3); MONO # 1.2 10*3/uL (0.1-1.0); MONO % 11.5 % (3.0-9.0); NEUT % 65.4 % (47.0-73.0); PLATELET COUNT AUTOMATED 255 10*3/uL (130-400); RED BLOOD COUNT 4.76 10*6/uL (4.50-5.90); RED CELL DISTRI WIDTH 14.5 % (0-14.5); WHITE BLOOD COUNT 10.7 10*3/uL (4.8-10.8)
[2021-02-25 12:00] VITALS: BP 136/92
== END 2021-02-25 12:24 | DRG 602 ==
LOC: ED 22:24 → EDHOLD 02-21 01:18 → 5E 02-21 01:43
PROVIDERS: Internal Medicine; Podiatrist; ADMIT Internal Medicine; ATTEND Internal Medicine
PROC: 0H9LXZZ Drainage of Left Lower Leg Skin, External Approach (ICD-10-PCS; principal; 2021-02-21)
DX: L03.116 Cellulitis of left lower limb (principal); I50.33 Acute on chronic diastolic (congestive) heart failure; I48.21 Permanent atrial fibrillation; I11.0 Hypertensive heart disease with heart failure; L03.115 Cellulitis of right lower limb; R62.7 Adult failure to thrive; K74.60 Unspecified cirrhosis of liver; K75.81 Nonalcoholic steatohepatitis (NASH); I83.029 Varicose veins of left lower extremity with ulcer of unspecified site; D75.89 Other specified diseases of blood and blood-forming organs; Z20.822 Contact with and (suspected) exposure to COVID-19; R29.6 Repeated falls; E66.01 Morbid (severe) obesity due to excess calories; B35.1 Tinea unguium; Z87.891 Personal history of nicotine dependence; Z68.38 Body mass index [BMI] 38.0-38.9, adult

== ENCOUNTER 2021-05-10 22:27 | Emergency (ER) | payer MEDICARE, BC ==
[~2021-05-10 22:27] MED LIST changes: +CEPHALEXIN500 M1 PO; +TERBINAFINE250 MG PO
[2021-05-10 22:58] LABS: BASO % 0.5 % (0.0-1.0); EOS # 0.2 10*3/uL (0.0-0.4); EOS % 1.9 % (1.0-4.0); HEMATOCRIT 46.8 % (42.0-52.0); LYMPH # 2.3 10*3/uL (1.3-4.4); LYMPH % 29.6 % (27.0-41.0); MEAN CELL VOLUME 98.5 fl (80.0-94.0); MEAN CORPUSCULAR HGB 29.7 pg (27.0-31.0); MEAN CORPUSCULAR HGB CONC 30.1 g/dl (33.0-37.0); MEAN PLATELET VOLUME 10.6 fl (9.6-12.3); MONO % 12.3 % (3.0-9.0); NEUT # 4.4 10*3/uL (2.3-7.9); NEUT % 55.3 % (47.0-73.0); PLATELET COUNT AUTOMATED 200 10*3/uL (130-400); RED BLOOD COUNT 4.75 10*6/uL (4.50-5.90); RED CELL DISTRI WIDTH 15.3 % (0-14.5); WHITE BLOOD COUNT 7.9 10*3/uL (4.8-10.8)
[2021-05-10 23:21] LABS: ALBUMIN 2.8 gm/dl (3.1-4.5); ALKALINE PHOSPHATASE 75 U/L (45-117); BUN 20 mg/dl (7-24); CHLORIDE 109 mmol/L (98-107); SGOT/AST 14 IU/L (3-35); SGPT/ALT 13 U/L (12-78); SODIUM 145 mmol/L (136-145); TOTAL PROTEIN 6.3 gm/dL (6.4-8.2)
[2021-05-11 01:17] LABS: BILIRUBIN Negative (Negative); BLOOD Negative (Negative); CLARITY Clear (Clear); COLOR Yellow (Yellow); GLUCOSE Negative (Negative); KETONE Trace (Negative); LEUKO ESTERASE Negative (Negative); NITRITE Negative (Negative); PH 6.5 (4.5-8.0); SPECIFIC GRAVITY 1.025 (1.001-1.030)
[2021-05-11 01:40] LABS: BACTERIA 1+
[2021-05-11 01:59] VITALS: BP 141/98
[2021-05-11] MEDS ORDERED: MIRALAX POWDER17 G1 PO (02:14)
== END 2021-05-11 02:40 | disposition home or self-care (01) ==
LOC: ED 22:27
PROVIDERS: Internal Medicine
DX: K59.00 Constipation, unspecified (principal); R39.11 Hesitancy of micturition; R60.0 Localized edema; Z87.891 Personal history of nicotine dependence; Z79.899 Other long term (current) drug therapy

== ENCOUNTER 2021-05-13 10:58 | Emergency (ER) | payer MEDICARE, BC ==
[~2021-05-13 10:58] MED LIST changes: +MIRALAX POWDER17 G1 PO
[2021-05-13 11:01] VITALS: BP 150/93
[2021-05-13 12:04] LABS: BASO % 0.3 % (0.0-1.0); EOS % 0.2 % (1.0-4.0); HEMATOCRIT 49.1 % (42.0-52.0); LYMPH # 1.4 10*3/uL (1.3-4.4); LYMPH % 12.4 % (27.0-41.0); MEAN CORPUSCULAR HGB 29.3 pg (27.0-31.0); MEAN CORPUSCULAR HGB CONC 29.9 g/dl (33.0-37.0); MEAN PLATELET VOLUME 10.3 fl (9.6-12.3); MONO # 1.2 10*3/uL (0.1-1.0); NEUT # 8.4 10*3/uL (2.3-7.9); NEUT % 75.6 % (47.0-73.0); PLATELET COUNT AUTOMATED 191 10*3/uL (130-400); RED BLOOD COUNT 5.01 10*6/uL (4.50-5.90); RED CELL DISTRI WIDTH 15.3 % (0-14.5); WHITE BLOOD COUNT 11.1 10*3/uL (4.8-10.8)
[2021-05-13 12:21] LABS: ALBUMIN 3.2 gm/dl (3.1-4.5); ALKALINE PHOSPHATASE 79 U/L (45-117); BUN 16 mg/dl (7-24); CHLORIDE 108 mmol/L (98-107); CPK 176 U/L (39-308); CREATININE 1.15 mg/dL (0.70-1.30); SGOT/AST 16 IU/L (3-35); SGPT/ALT 12 U/L (12-78); SODIUM 145 mmol/L (136-145); TOTAL PROTEIN 6.5 gm/dL (6.4-8.2)
[2021-05-13 12:33] LABS: BILIRUBIN Negative (Negative); BLOOD Negative (Negative); CLARITY Clear (Clear); COLOR Yellow (Yellow); GLUCOSE Negative (Negative); KETONE Trace (Negative); LEUKO ESTERASE Negative (Negative); NITRITE Negative (Negative)
[2021-05-13 12:43] LABS: PH 8.5 (4.5-8.0)
[2021-05-13 12:45] LABS: BACTERIA TRACE; WBC 0-2 wbc/hpf (0-5)
== END 2021-05-13 17:39 | disposition home or self-care (01) ==
LOC: ED 10:58
PROVIDERS: Emergency Medicine
DX: S30.0XXA Contusion of lower back and pelvis, initial encounter (principal); Z20.822 Contact with and (suspected) exposure to COVID-19; Z79.899 Other long term (current) drug therapy; Z79.2 Long term (current) use of antibiotics; Z87.891 Personal history of nicotine dependence; W18.12XA Fall from or off toilet with subsequent striking against object, initial encounter; Y93.89 Activity, other specified; Y92.128 Other place in nursing home as the place of occurrence of the external cause; Y99.8 Other external cause status

== ENCOUNTER 2021-05-16 09:20 | Emergency (ER) | payer MEDICARE, BC ==
[~2021-05-16] VITALS: Wt 124.3 kg
[2021-05-16 10:20] LABS: BASO % 0.3 % (0.0-1.0); EOS % 0.4 % (1.0-4.0); HEMATOCRIT 50.4 % (42.0-52.0); LYMPH # 1.8 10*3/uL (1.3-4.4); LYMPH % 15.8 % (27.0-41.0); MEAN CELL VOLUME 104.1 fl (80.0-94.0); MEAN CORPUSCULAR HGB CONC 28.8 g/dl (33.0-37.0); MEAN PLATELET VOLUME 11.1 fl (9.6-12.3); MONO # 1.5 10*3/uL (0.1-1.0); MONO % 13.5 % (3.0-9.0); NEUT # 7.6 10*3/uL (2.3-7.9); NEUT % 68.4 % (47.0-73.0); PLATELET COUNT AUTOMATED 152 10*3/uL (130-400); RED BLOOD COUNT 4.84 10*6/uL (4.50-5.90); WHITE BLOOD COUNT 11.1 10*3/uL (4.8-10.8)
[2021-05-16 10:39] LABS: ALBUMIN 2.5 gm/dl (3.1-4.5); ALKALINE PHOSPHATASE 67 U/L (45-117); BUN 24 mg/dl (7-24); CHLORIDE 110 mmol/L (98-107); CREATININE 0.98 mg/dL (0.70-1.30); POTASSIUM 5.1 mmol/L (3.5-5.1); SGOT/AST 19 IU/L (3-35); SGPT/ALT 12 U/L (12-78); SODIUM 140 mmol/L (136-145); TOTAL PROTEIN 6.1 gm/dL (6.4-8.2)
[2021-05-16 13:13] LABS: BILIRUBIN Negative (Negative); BLOOD Negative (Negative); CLARITY Clear (Clear); COLOR Yellow (Yellow); GLUCOSE Negative (Negative); KETONE Negative (Negative); LEUKO ESTERASE Negative (Negative); NITRITE Negative (Negative); SPECIFIC GRAVITY 1.015 (1.001-1.030)
[2021-05-16 13:41] LABS: HYALINE CAST 21-30; WBC 0-2 wbc/hpf (0-5)
[2021-05-16 13:42] LABS: WHITE BLOOD CELL CAST 0-2
[2021-05-16 14:54] VITALS: BP 118/86
== END 2021-05-16 15:00 ==
LOC: ED 09:20
PROVIDERS: Student in an Organized Health Care Education/Training Program
DX: G93.41 Metabolic encephalopathy (principal); E16.2 Hypoglycemia, unspecified; Z79.899 Other long term (current) drug therapy

== ENCOUNTER 2021-05-16 15:53 | Observation (INO) | payer MEDICARE, BC ==
[~2021-05-16] VITALS: Ht 180.3 cm; Wt 127.5 kg
[2021-05-16 15:53] VITALS: BP 110/68
[2021-05-16 17:20] VITALS: BP 124/67
[2021-05-16 20:00] VITALS: BP 106/50; BP 107/33
[2021-05-17] VITALS (8 sets, daily range): BP systolic 99–133; BP diastolic 52–76
[2021-05-17 08:51] LABS: HEMATOCRIT 48.8 % (42.0-52.0); MEAN CELL VOLUME 101.9 fl (80.0-94.0); MEAN CORPUSCULAR HGB 29.6 pg (27.0-31.0); MEAN CORPUSCULAR HGB CONC 29.1 g/dl (33.0-37.0); MEAN PLATELET VOLUME 10.9 fl (9.6-12.3); PLATELET COUNT AUTOMATED 181 10*3/uL (130-400); RED BLOOD COUNT 4.79 10*6/uL (4.50-5.90); RED CELL DISTRI WIDTH 14.6 % (0-14.5); WHITE BLOOD COUNT 10.4 10*3/uL (4.8-10.8)
[2021-05-17 09:03] LABS: BUN 31 mg/dl (7-24); CHLORIDE 110 mmol/L (98-107); CREATININE 1.09 mg/dL (0.70-1.30); POTASSIUM 4.4 mmol/L (3.5-5.1); SODIUM 143 mmol/L (136-145)
[2021-05-17 09:20] LABS: ATYPICAL LYMPHS 1 % (0-0); OVALOCYTES FEW; PLATELET SUFFICIENCY NORMAL (NORMAL); POLYCHROMASIA SLIGHT; TOTAL CELLS COUNTED 100 #CELLS
[2021-05-18] VITALS: BP 122/68
[2021-05-18 05:28] LABS: CHLORIDE 126 mmol/L (98-107); CREATININE 0.32 mg/dL (0.70-1.30); SODIUM 147 mmol/L (136-145)
[2021-05-18 05:38] LABS: BUN 18 mg/dl (7-24); POTASSIUM 2.5 mmol/L (3.5-5.1)
[2021-05-18 05:52] LABS: BASO % 0.3 % (0.0-1.0); EOS # 0.2 10*3/uL (0.0-0.4); EOS % 2.6 % (1.0-4.0); HEMATOCRIT 37.5 % (42.0-52.0); LYMPH # 1.3 10*3/uL (1.3-4.4); LYMPH % 20.1 % (27.0-41.0); MEAN CELL VOLUME 102.2 fl (80.0-94.0); MEAN CORPUSCULAR HGB 29.4 pg (27.0-31.0); MEAN CORPUSCULAR HGB CONC 28.8 g/dl (33.0-37.0); MEAN PLATELET VOLUME 10.9 fl (9.6-12.3); MONO % 15.4 % (3.0-9.0); NEUT # 3.9 10*3/uL (2.3-7.9); NEUT % 60.7 % (47.0-73.0); PLATELET COUNT AUTOMATED 134 10*3/uL (130-400); RED BLOOD COUNT 3.67 10*6/uL (4.50-5.90); RED CELL DISTRI WIDTH 14.3 % (0-14.5); WHITE BLOOD COUNT 6.5 10*3/uL (4.8-10.8)
[2021-05-18 08:00] VITALS: BP 145/94
[2021-05-18 12:00] VITALS: BP 135/84
[2021-05-18 16:00] VITALS: BP 129/67
[2021-05-18 20:00] VITALS: BP 153/90
[2021-05-19] VITALS: BP 138/97
[2021-05-19 05:52] LABS: BUN 17 mg/dl (7-24); CHLORIDE 108 mmol/L (98-107); CREATININE 0.86 mg/dL (0.70-1.30); POTASSIUM 4.5 mmol/L (3.5-5.1); SODIUM 145 mmol/L (136-145)
[2021-05-19 06:00] LABS: BASO % 0.5 % (0.0-1.0); EOS # 0.3 10*3/uL (0.0-0.4); EOS % 4.4 % (1.0-4.0); HEMATOCRIT 46.6 % (42.0-52.0); LYMPH # 1.4 10*3/uL (1.3-4.4); MEAN CELL VOLUME 101.1 fl (80.0-94.0); MEAN CORPUSCULAR HGB 29.5 pg (27.0-31.0); MEAN CORPUSCULAR HGB CONC 29.2 g/dl (33.0-37.0); MEAN PLATELET VOLUME 10.9 fl (9.6-12.3); MONO # 0.8 10*3/uL (0.1-1.0); MONO % 13.1 % (3.0-9.0); NEUT # 3.8 10*3/uL (2.3-7.9); NEUT % 59.4 % (47.0-73.0); PLATELET COUNT AUTOMATED 173 10*3/uL (130-400); RED BLOOD COUNT 4.61 10*6/uL (4.50-5.90); RED CELL DISTRI WIDTH 14.5 % (0-14.5); WHITE BLOOD COUNT 6.4 10*3/uL (4.8-10.8)
[2021-05-19 08:00] VITALS: BP 127/95
[2021-05-19 12:00] VITALS: BP 105/64
[2021-05-19 16:00] VITALS: BP 101/49
== END 2021-05-19 19:31 ==
LOC: ED 15:53 → EDHOLD 16:52 → 4E 16:52
PROVIDERS: ADMIT Internal Medicine; ATTEND Internal Medicine
DX: I85.01 Esophageal varices with bleeding (principal); K29.71 Gastritis, unspecified, with bleeding; K75.81 Nonalcoholic steatohepatitis (NASH); F03.90 Unspecified dementia, unspecified severity, without behavioral disturbance, psychotic disturbance, mood disturbance, and anxiety; Z20.822 Contact with and (suspected) exposure to COVID-19; I10 Essential (primary) hypertension; E78.00 Pure hypercholesterolemia, unspecified; R62.7 Adult failure to thrive; E16.2 Hypoglycemia, unspecified; E66.01 Morbid (severe) obesity due to excess calories; E83.51 Hypocalcemia; E86.0 Dehydration; E87.6 Hypokalemia; K21.01 Gastro-esophageal reflux disease with esophagitis, with bleeding; K59.09 Other constipation; I87.2 Venous insufficiency (chronic) (peripheral); I48.21 Permanent atrial fibrillation; I11.0 Hypertensive heart disease with heart failure; I50.32 Chronic diastolic (congestive) heart failure; K74.60 Unspecified cirrhosis of liver; R18.8 Other ascites; Z68.39 Body mass index [BMI] 39.0-39.9, adult; Z79.01 Long term (current) use of anticoagulants

== ENCOUNTER 2021-07-07 11:09 | Inpatient (IN) | payer MEDICARE, BC ==
[2021-07-07] VITALS (8 sets, daily range): BP systolic 143–173; BP diastolic 87–111
[~2021-07-07] VITALS: Ht 182.8 cm; Wt 131.2 kg
[2021-07-07 11:43] LABS: ABG BASE EXCESS 10.2 mmol/L (-2.0-2.0); ARTERIAL BLOOD GAS PH 7.426 (7.35-7.45); ARTERIAL BLOOD GAS PO2 61.1 (80-90)
[2021-07-07 12:03] LABS: BILIRUBIN Negative (Negative); BLOOD Negative (Negative); CLARITY Clear (Clear); COLOR Dark Yellow (Yellow); GLUCOSE Negative (Negative); KETONE 1+ (Negative); LEUKO ESTERASE Trace (Negative); NITRITE Negative (Negative)
[2021-07-07 12:04] LABS: BASO % 0.5 % (0.0-1.0); EOS % 0.2 % (1.0-4.0); HEMATOCRIT 42.2 % (42.0-52.0); LYMPH # 0.9 10*3/uL (1.3-4.4); LYMPH % 13.8 % (27.0-41.0); MEAN CELL VOLUME 99.5 fl (80.0-94.0); MEAN CORPUSCULAR HGB 29.7 pg (27.0-31.0); MEAN CORPUSCULAR HGB CONC 29.9 g/dl (33.0-37.0); MEAN PLATELET VOLUME 10.6 fl (9.6-12.3); NEUT # 4.5 10*3/uL (2.3-7.9); NEUT % 69.4 % (47.0-73.0); PLATELET COUNT AUTOMATED 169 10*3/uL (130-400); RED BLOOD COUNT 4.24 10*6/uL (4.50-5.90); RED CELL DISTRI WIDTH 15.5 % (0-14.5); WHITE BLOOD COUNT 6.5 10*3/uL (4.8-10.8)
[2021-07-07 12:24] LABS: ALBUMIN 3.4 gm/dl (3.1-4.5); ALKALINE PHOSPHATASE 93 U/L (45-117); BUN 21 mg/dl (7-24); CHLORIDE 102 mmol/L (98-107); CREATININE 0.93 mg/dL (0.70-1.30); POTASSIUM 4.2 mmol/L (3.5-5.1); SGOT/AST 27 IU/L (3-35); SGPT/ALT 26 U/L (12-78); SODIUM 142 mmol/L (136-145); TOTAL PROTEIN 6.9 gm/dL (6.4-8.2)
[2021-07-07 12:25] LABS: TROPONIN I < 0.015 ng/ml (<0.045)
[2021-07-07 12:30] LABS: PH >= 9.0 (4.5-8.0)
[2021-07-07 12:31] LABS: BACTERIA 1+; EPITHELIAL CELLS 0-2; RBC 0-2 rbc/hpf (0-2); WBC 0-2 wbc/hpf (0-5)
[2021-07-08] VITALS: BP 147/94
[2021-07-08 08:00] VITALS: BP 128/72
[2021-07-08 08:30] LABS: ARTERIAL BLOOD GAS PH 7.239 (7.35-7.45); ARTERIAL BLOOD GAS PO2 88.6 (80-90)
[2021-07-08 12:00] VITALS: BP 124/66
[2021-07-08 16:00] VITALS: BP 119/83
[2021-07-08 20:00] VITALS: BP 91/73
[2021-07-09] VITALS: BP 102/53
[2021-07-09 06:36] LABS: BASO % 0.2 % (0.0-1.0); LYMPH # 0.9 10*3/uL (1.3-4.4); LYMPH % 15.5 % (27.0-41.0); MEAN CORPUSCULAR HGB 29.9 pg (27.0-31.0); MEAN CORPUSCULAR HGB CONC 29.3 g/dl (33.0-37.0); MEAN PLATELET VOLUME 11.2 fl (9.6-12.3); MONO # 0.9 10*3/uL (0.1-1.0); MONO % 14.6 % (3.0-9.0); NEUT # 4.2 10*3/uL (2.3-7.9); NEUT % 69.2 % (47.0-73.0); PLATELET COUNT AUTOMATED 154 10*3/uL (130-400); RED BLOOD COUNT 4.02 10*6/uL (4.50-5.90); RED CELL DISTRI WIDTH 15.4 % (0-14.5); WHITE BLOOD COUNT 6.1 10*3/uL (4.8-10.8)
[2021-07-09 06:52] LABS: BUN 26 mg/dl (7-24); CHLORIDE 99 mmol/L (98-107); CREATININE 1.01 mg/dL (0.70-1.30); POTASSIUM 4.1 mmol/L (3.5-5.1); SODIUM 142 mmol/L (136-145)
[2021-07-09 08:00] VITALS: BP 112/86
[2021-07-09 08:30] LABS: ARTERIAL BLOOD GAS PH 7.367 (7.35-7.45)
[2021-07-09 12:00] VITALS: BP 122/72
[2021-07-09 12:39] LABS: ABG BASE EXCESS 16.3 mmol/L (-2.0-2.0); ARTERIAL BLOOD GAS PH 7.464 (7.35-7.45); ARTERIAL BLOOD GAS PO2 59.5 (80-90)
[2021-07-09 16:00] VITALS: BP 118/70
[2021-07-09 20:00] VITALS: BP 143/87
[2021-07-10] VITALS: BP 117/66
[2021-07-10 07:15] LABS: ABG BASE EXCESS 13.9 mmol/L (-2.0-2.0); ARTERIAL BLOOD GAS PH 7.334 (7.35-7.45); ARTERIAL BLOOD GAS PO2 133.6 (80-90)
[2021-07-10 08:00] VITALS: BP 141/92
[2021-07-10] MEDS ORDERED: ACETAZOLAMIDE250 MG PO (10:54)
[2021-07-10] MEDS ORDERED: MEDROL DOSEPAK4 MG PO (10:56)
== END 2021-07-10 13:53 | DRG 291 ==
LOC: ED 11:09 → EDHOLD 13:26 → 4E 13:26
PROVIDERS: Emergency Medicine; Internal Medicine Critical Care Medicine; ADMIT Internal Medicine; ATTEND Internal Medicine
PROC: 5A09357 Assistance with Respiratory Ventilation, Less than 24 Consecutive Hours, Continuous Positive Airway Pressure (ICD-10-PCS; principal; 2021-07-09)
PROC: 5A09357 Assistance with Respiratory Ventilation, Less than 24 Consecutive Hours, Continuous Positive Airway Pressure (ICD-10-PCS; 2021-07-10)
DX: I11.0 Hypertensive heart disease with heart failure (principal); J96.22 Acute and chronic respiratory failure with hypercapnia; J96.21 Acute and chronic respiratory failure with hypoxia; J44.1 Chronic obstructive pulmonary disease with (acute) exacerbation; I48.21 Permanent atrial fibrillation; K92.2 Gastrointestinal hemorrhage, unspecified; R18.8 Other ascites; I48.20 Chronic atrial fibrillation, unspecified; Z66 Do not resuscitate; Z51.5 Encounter for palliative care; I50.33 Acute on chronic diastolic (congestive) heart failure; Z20.822 Contact with and (suspected) exposure to COVID-19; R62.7 Adult failure to thrive; I89.0 Lymphedema, not elsewhere classified; I87.2 Venous insufficiency (chronic) (peripheral); K74.60 Unspecified cirrhosis of liver; E66.01 Morbid (severe) obesity due to excess calories; R26.2 Difficulty in walking, not elsewhere classified; Z68.39 Body mass index [BMI] 39.0-39.9, adult

== ENCOUNTER 2021-07-31 16:05 | Inpatient (IN) | payer MEDICARE, BC ==
[~2021-07-31] VITALS: Ht 182.8 cm; Wt 144.7 kg
[~2021-07-31 16:05] MED LIST changes: +ACETAZOLAMIDE250 MG PO; +MEDROL DOSEPAK4 MG PO
[2021-07-31 16:19] VITALS: BP 144/78
[2021-07-31 16:39] LABS: BILIRUBIN Negative (Negative); BLOOD Negative (Negative); CLARITY Cloudy (Clear); COLOR Yellow (Yellow); GLUCOSE Negative (Negative); KETONE Negative (Negative); LEUKO ESTERASE Negative (Negative); NITRITE Negative (Negative); SPECIFIC GRAVITY 1.015 (1.001-1.030)
[2021-07-31 16:53] LABS: BASO % 0.5 % (0.0-1.0); EOS # 0.2 10*3/uL (0.0-0.4); EOS % 2.6 % (1.0-4.0); HEMATOCRIT 46.5 % (42.0-52.0); LYMPH # 1.6 10*3/uL (1.3-4.4); LYMPH % 26.9 % (27.0-41.0); MEAN CELL VOLUME 103.1 fl (80.0-94.0); MEAN CORPUSCULAR HGB 29.9 pg (27.0-31.0); MEAN PLATELET VOLUME 10.8 fl (9.6-12.3); MONO # 0.7 10*3/uL (0.1-1.0); MONO % 11.2 % (3.0-9.0); NEUT # 3.4 10*3/uL (2.3-7.9); NEUT % 58.6 % (47.0-73.0); PLATELET COUNT AUTOMATED 145 10*3/uL (130-400); RED BLOOD COUNT 4.51 10*6/uL (4.50-5.90); RED CELL DISTRI WIDTH 15.4 % (0-14.5); WHITE BLOOD COUNT 5.8 10*3/uL (4.8-10.8)
[2021-07-31 17:02] VITALS: BP 121/75
[2021-07-31 17:12] LABS: BACTERIA 4+; MUCOUS TRACE; RBC 0-2 rbc/hpf (0-2)
[2021-07-31 17:14] LABS: ALBUMIN 3.2 gm/dl (3.1-4.5); ALKALINE PHOSPHATASE 80 U/L (45-117); BUN 26 mg/dl (7-24); CHLORIDE 110 mmol/L (98-107); CREATININE 1.09 mg/dL (0.70-1.30); POTASSIUM 4.2 mmol/L (3.5-5.1); SGOT/AST 25 IU/L (3-35); SGPT/ALT 31 U/L (12-78); SODIUM 144 mmol/L (136-145); TOTAL PROTEIN 6.4 gm/dL (6.4-8.2)
[2021-07-31 17:19] LABS: TROPONIN I < 0.015 ng/ml (<0.045)
[2021-08-01] MEDS ORDERED: OMEPRAZOLE MAGN20 MG PO (13:11)
[2021-08-01 23:26] VITALS: BP 128/94
[2021-08-02 07:24] LABS: HEMATOCRIT 45.6 % (42.0-52.0); MEAN CORPUSCULAR HGB 30.2 pg (27.0-31.0); MEAN CORPUSCULAR HGB CONC 28.5 g/dl (33.0-37.0); MEAN PLATELET VOLUME 10.7 fl (9.6-12.3); PLATELET COUNT AUTOMATED 129 10*3/uL (130-400); RED CELL DISTRI WIDTH 15.5 % (0-14.5); WHITE BLOOD COUNT 8.7 10*3/uL (4.8-10.8)
[2021-08-02 07:27] LABS: BUN 27 mg/dl (7-24); CHLORIDE 112 mmol/L (98-107); CREATININE 1.13 mg/dL (0.70-1.30); POTASSIUM 4.5 mmol/L (3.5-5.1); SODIUM 145 mmol/L (136-145)
[2021-08-02 08:00] VITALS: BP 94/69
[2021-08-02 08:16] LABS: PLATELET SUFFICIENCY LOW (NORMAL); TOTAL CELLS COUNTED 100 #CELLS
[2021-08-02 12:00] VITALS: BP 110/67
[2021-08-02 16:00] VITALS: BP 117/78
[2021-08-02 20:00] VITALS: BP 106/65
[2021-08-03] VITALS: BP 126/71
[2021-08-03] MEDS ORDERED: METOPROLOL SUCC50 M1 PO (06:00)
[2021-08-03] MEDS ORDERED: BUMETANIDE2 MG PO (06:00)
[2021-08-03] MEDS ORDERED: CEFUROXIME AXE250 MG PO (06:00)
[2021-08-03 08:00] VITALS: BP 104/77
== END 2021-08-03 12:00 | DRG 690 ==
LOC: ED 16:05 → 4E 18:30 → EDHOLD 18:30 → 4E 08-01 21:39
PROVIDERS: Emergency Medicine; ADMIT Internal Medicine; ATTEND Internal Medicine
DX: N39.0 Urinary tract infection, site not specified (principal); I48.21 Permanent atrial fibrillation; R62.7 Adult failure to thrive; K75.81 Nonalcoholic steatohepatitis (NASH); Z68.38 Body mass index [BMI] 38.0-38.9, adult; Z51.5 Encounter for palliative care; Z66 Do not resuscitate; I10 Essential (primary) hypertension; E11.9 Type 2 diabetes mellitus without complications; F41.1 Generalized anxiety disorder; Z20.822 Contact with and (suspected) exposure to COVID-19; B96.4 Proteus (mirabilis) (morganii) as the cause of diseases classified elsewhere; Z87.891 Personal history of nicotine dependence; Z79.01 Long term (current) use of anticoagulants

== ENCOUNTER 2021-09-07 15:42 | Emergency (ER) | payer MEDICARE, BC ==
[~2021-09-07 15:42] MED LIST changes: +BUMETANIDE2 MG PO; +METOPROLOL SUCC50 M1 PO; +OMEPRAZOLE MAGN20 MG PO
[2021-09-07 15:50] VITALS: BP 133/86
[2021-09-07] MEDS ORDERED: TRAMADOL HCL50 MG PO (16:01)
== END 2021-09-07 16:05 | disposition home or self-care (01) ==
LOC: ED 15:42
DX: S30.91XA Unspecified superficial injury of lower back and pelvis, initial encounter (principal); Z79.899 Other long term (current) drug therapy; Z79.2 Long term (current) use of antibiotics; Z87.891 Personal history of nicotine dependence; X58.XXXA Exposure to other specified factors, initial encounter; Y93.89 Activity, other specified; Y92.89 Other specified places as the place of occurrence of the external cause; Y99.8 Other external cause status

== ENCOUNTER 2021-09-09 16:15 | Inpatient (IN) | payer MEDICARE, BC ==
[~2021-09-09] VITALS: Ht 182.9 cm; Wt 131.5 kg
[~2021-09-09 16:15] MED LIST changes: +TRAMADOL HCL50 MG PO
[2021-09-09 16:20] VITALS: BP 135/82
[2021-09-09 16:46] LABS: BASO % 0.4 % (0.0-1.0); EOS # 0.1 10*3/uL (0.0-0.4); EOS % 0.9 % (1.0-4.0); HEMATOCRIT 50.1 % (42.0-52.0); LYMPH # 2.2 10*3/uL (1.3-4.4); LYMPH % 22.3 % (27.0-41.0); MEAN CORPUSCULAR HGB 30.5 pg (27.0-31.0); MEAN CORPUSCULAR HGB CONC 31.1 g/dl (33.0-37.0); MEAN PLATELET VOLUME 11.3 fl (9.6-12.3); MONO # 1.1 10*3/uL (0.1-1.0); MONO % 11.1 % (3.0-9.0); NEUT # 6.4 10*3/uL (2.3-7.9); NEUT % 64.8 % (47.0-73.0); PLATELET COUNT AUTOMATED 171 10*3/uL (130-400); RED BLOOD COUNT 5.11 10*6/uL (4.50-5.90); RED CELL DISTRI WIDTH 13.4 % (0-14.5); WHITE BLOOD COUNT 9.8 10*3/uL (4.8-10.8)
[2021-09-09 16:57] LABS: ACT PARTIAL THROMBO TIME 28.8 SECONDS (20.0-32.1); INTERNATIONAL NORM RATIO 1.1 (2.0-3.5)
[2021-09-09 17:04] LABS: ALBUMIN 3.1 gm/dl (3.1-4.5); ALKALINE PHOSPHATASE 89 U/L (45-117); BUN 27 mg/dl (7-24); CHLORIDE 108 mmol/L (98-107); CREATININE 1.32 mg/dL (0.70-1.30); POTASSIUM 4.3 mmol/L (3.5-5.1); SGOT/AST 22 IU/L (3-35); SGPT/ALT 18 U/L (12-78); SODIUM 142 mmol/L (136-145)
[2021-09-09 17:06] LABS: TROPONIN I < 0.015 ng/ml (<0.045)
[2021-09-09 17:34] VITALS: BP 133/67
[2021-09-09 23:00] VITALS: BP 134/70
[2021-09-10 08:00] VITALS: BP 120/84
[2021-09-10 12:00] VITALS: BP 107/53
[2021-09-10 15:58] VITALS: BP 111/61
[2021-09-10 20:00] VITALS: BP 91/55
[2021-09-11] VITALS: BP 110/68
[2021-09-11 06:47] LABS: BUN 32 mg/dl (7-24); CHLORIDE 106 mmol/L (98-107); CREATININE 1.23 mg/dL (0.70-1.30); SODIUM 144 mmol/L (136-145)
[2021-09-11 08:00] VITALS: BP 120/84
[2021-09-11] MEDS ORDERED: GOOD SENSE ASP325 MG PO (10:05)
[2021-09-11 12:00] VITALS: BP 124/82
[2021-09-11 16:00] VITALS: BP 111/64
== END 2021-09-11 17:31 | disposition home or self-care (01) | DRG 302 ==
LOC: ED 16:15 → EDHOLD 18:35 → 4E 09-10 07:29 → EDHOLD 09-10 07:29 → 4E 09-10 16:57
PROVIDERS: Emergency Medicine; Internal Medicine; ADMIT Internal Medicine; ATTEND Internal Medicine
PROC: 4A02XM4 Measurement of Cardiac Total Activity, External Approach (ICD-10-PCS; principal; 2021-09-10)
PROC: 3E073KZ Introduction of Other Diagnostic Substance into Coronary Artery, Percutaneous Approach (ICD-10-PCS; 2021-09-10)
DX: I25.10 Atherosclerotic heart disease of native coronary artery without angina pectoris (principal); J96.20 Acute and chronic respiratory failure, unspecified whether with hypoxia or hypercapnia; I50.32 Chronic diastolic (congestive) heart failure; I48.21 Permanent atrial fibrillation; I89.0 Lymphedema, not elsewhere classified; Y84.8 Other medical procedures as the cause of abnormal reaction of the patient, or of later complication, without mention of misadventure at the time of the procedure; T80.89XA Other complications following infusion, transfusion and therapeutic injection, initial encounter; J43.2 Centrilobular emphysema; G89.29 Other chronic pain; M54.50 Low back pain, unspecified; R62.7 Adult failure to thrive; E66.1 Drug-induced obesity; Z20.822 Contact with and (suspected) exposure to COVID-19; K75.81 Nonalcoholic steatohepatitis (NASH); I08.2 Rheumatic disorders of both aortic and tricuspid valves; K74.60 Unspecified cirrhosis of liver; I11.0 Hypertensive heart disease with heart failure; E78.5 Hyperlipidemia, unspecified; Z68.39 Body mass index [BMI] 39.0-39.9, adult; Z82.49 Family history of ischemic heart disease and other diseases of the circulatory system; Y92.89 Other specified places as the place of occurrence of the external cause

== ENCOUNTER 2022-05-07 16:55 | Emergency (ER) | payer MEDICARE, BC ==
[~2022-05-07] VITALS: Ht 182.8 cm; Wt 117.9 kg
[~2022-05-07 16:55] MED LIST changes: +GOOD SENSE ASP325 MG PO
[2022-05-07] MEDS ORDERED: PRAVASTATIN SOD40 MG PO (17:00)
[2022-05-07 17:19] LABS: BILIRUBIN Negative (Negative); BLOOD Negative (Negative); CLARITY Clear (Clear); COLOR Yellow (Yellow); GLUCOSE Negative (Negative); KETONE Negative (Negative); LEUKO ESTERASE Negative (Negative); NITRITE Negative (Negative); PH 6.5 (4.5-8.0); UROBILINOGEN 0.2 E.U./dl (0.0-1.0)
[2022-05-07 17:26] LABS: WBC 0-2 wbc/hpf (0-5)
[2022-05-07 18:08] LABS: BASO # 0.1 10*3/uL (0.0-0.1); BASO % 0.6 % (0.0-1.0); EOS # 0.1 10*3/uL (0.0-0.4); EOS % 1.1 % (1.0-4.0); HEMATOCRIT 47.5 % (42.0-52.0); LYMPH # 2.1 10*3/uL (1.3-4.4); LYMPH % 25.6 % (27.0-41.0); MEAN CELL VOLUME 95.4 fl (80.0-94.0); MEAN CORPUSCULAR HGB 29.7 pg (27.0-31.0); MEAN CORPUSCULAR HGB CONC 31.2 g/dl (33.0-37.0); MEAN PLATELET VOLUME 10.3 fl (9.6-12.3); MONO # 0.9 10*3/uL (0.1-1.0); MONO % 11.2 % (3.0-9.0); NEUT # 4.9 10*3/uL (2.3-7.9); NEUT % 60.9 % (47.0-73.0); PLATELET COUNT AUTOMATED 218 10*3/uL (130-400); RED BLOOD COUNT 4.98 10*6/uL (4.50-5.90); RED CELL DISTRI WIDTH 14.8 % (0-14.5)
[2022-05-07 18:32] LABS: ALKALINE PHOSPHATASE 87 U/L (45-117); BUN 23 mg/dl (7-24); CHLORIDE 108 mmol/L (98-107); CREATININE 1.14 mg/dL (0.70-1.30); POTASSIUM 4.4 mmol/L (3.5-5.1); SGOT/AST 25 IU/L (3-35); SGPT/ALT 19 U/L (12-78); SODIUM 141 mmol/L (136-145); TOTAL PROTEIN 6.5 gm/dL (6.4-8.2)
[2022-05-07 18:58] VITALS: BP 150/99
[2022-05-07] MEDS ORDERED: ULTRAM50 MG PO (21:43)
[2022-05-07] MEDS ORDERED: MEDROL DOSEPAK4 MG PO (21:43)
== END 2022-05-07 21:50 | disposition home or self-care (01) ==
LOC: ED 16:55
PROVIDERS: Physician Assistant
DX: M54.9 Dorsalgia, unspecified (principal)

== ENCOUNTER → 2022-05-09 | Outpatient (CLI) | payer MEDICARE, BC ==
[~2022-05-09] MED LIST changes: +ULTRAM50 MG PO
== END | disposition home or self-care (01) ==
LOC: RESCLI 00:12
PROVIDERS: ATTEND Student in an Organized Health Care Education/Training Program
DX: I48.91 Unspecified atrial fibrillation (principal); I50.9 Heart failure, unspecified; B37.0 Candidal stomatitis; M19.90 Unspecified osteoarthritis, unspecified site; M54.9 Dorsalgia, unspecified; R73.09 Other abnormal glucose; Z79.899 Other long term (current) drug therapy

== ENCOUNTER 2022-05-21 13:19 | Inpatient (IN) | payer MEDICARE, BC ==
[~2022-05-21] VITALS: Ht 182.9 cm; Wt 121.8 kg
[2022-05-21 13:20] VITALS: BP 142/77
[2022-05-21 14:00] LABS: BILIRUBIN Negative (Negative); BLOOD Negative (Negative); CLARITY Clear (Clear); COLOR Yellow (Yellow); GLUCOSE Trace (Negative); KETONE Negative (Negative); LEUKO ESTERASE Negative (Negative); NITRITE Negative (Negative); SPECIFIC GRAVITY <= 1.005 (1.001-1.030); UROBILINOGEN 0.2 E.U./dl (0.0-1.0)
[2022-05-21 14:09] LABS: BACTERIA 1+; EPITHELIAL CELLS 0-2; WBC 0-2 wbc/hpf (0-5)
[2022-05-21 15:17] LABS: BASO # 0.1 10*3/uL (0.0-0.1); BASO % 0.6 % (0.0-1.0); EOS % 0.2 % (1.0-4.0); HEMATOCRIT 47.5 % (42.0-52.0); LYMPH # 1.7 10*3/uL (1.3-4.4); LYMPH % 18.8 % (27.0-41.0); MEAN CELL VOLUME 94.1 fl (80.0-94.0); MEAN CORPUSCULAR HGB 29.1 pg (27.0-31.0); MEAN CORPUSCULAR HGB CONC 30.9 g/dl (33.0-37.0); MEAN PLATELET VOLUME 10.3 fl (9.6-12.3); MONO # 1.1 10*3/uL (0.1-1.0); MONO % 11.9 % (3.0-9.0); NEUT % 67.7 % (47.0-73.0); PLATELET COUNT AUTOMATED 205 10*3/uL (130-400); RED BLOOD COUNT 5.05 10*6/uL (4.50-5.90); RED CELL DISTRI WIDTH 14.8 % (0-14.5); WHITE BLOOD COUNT 8.9 10*3/uL (4.8-10.8)
[2022-05-21 15:33] LABS: ALKALINE PHOSPHATASE 89 U/L (45-117); BUN 24 mg/dl (7-24); CHLORIDE 107 mmol/L (98-107); CREATININE 1.17 mg/dL (0.70-1.30); LIPASE 425 U/L (73-393); POTASSIUM 4.4 mmol/L (3.5-5.1); SGOT/AST 27 IU/L (3-35); SGPT/ALT 24 U/L (12-78); SODIUM 142 mmol/L (136-145); TOTAL PROTEIN 6.3 gm/dL (6.4-8.2)
[2022-05-21 15:40] LABS: ACT PARTIAL THROMBO TIME 25.1 SECONDS (20.0-32.1)
[2022-05-21 16:00] VITALS: BP 122/68
[2022-05-21 19:31] VITALS: BP 146/74
[2022-05-21 21:30] VITALS: BP 122/68
[2022-05-22] VITALS: BP 135/82
[2022-05-22 05:23] LABS: BUN 22 mg/dl (7-24); CHLORIDE 107 mmol/L (98-107); CHOLESTEROL 155 mg/dL (<200); CREATININE 1.15 mg/dL (0.70-1.30); POTASSIUM 4.3 mmol/L (3.5-5.1); SGOT/AST 26 IU/L (3-35); SGPT/ALT 25 U/L (12-78); SODIUM 145 mmol/L (136-145); TRIGLYCERIDES 61 mg/dl (<150)
[2022-05-22 05:24] LABS: ALKALINE PHOSPHATASE 86 U/L (45-117); LDL CHOLESTEROL 90 mg/dL (9-159); TOTAL PROTEIN 6.1 gm/dL (6.4-8.2)
[2022-05-22 05:30] LABS: FREE T4 1.27 ng/dl (0.76-1.46)
[2022-05-22 06:05] LABS: BASO % 0.4 % (0.0-1.0); EOS # 0.1 10*3/uL (0.0-0.4); HEMATOCRIT 45.4 % (42.0-52.0); LYMPH # 2.3 10*3/uL (1.3-4.4); LYMPH % 24.2 % (27.0-41.0); MEAN CELL VOLUME 94.4 fl (80.0-94.0); MEAN CORPUSCULAR HGB 29.3 pg (27.0-31.0); MEAN CORPUSCULAR HGB CONC 31.1 g/dl (33.0-37.0); MEAN PLATELET VOLUME 10.6 fl (9.6-12.3); MONO # 1.2 10*3/uL (0.1-1.0); MONO % 12.4 % (3.0-9.0); NEUT # 5.9 10*3/uL (2.3-7.9); NEUT % 61.4 % (47.0-73.0); PLATELET COUNT AUTOMATED 204 10*3/uL (130-400); RED BLOOD COUNT 4.81 10*6/uL (4.50-5.90); RED CELL DISTRI WIDTH 14.7 % (0-14.5); WHITE BLOOD COUNT 9.6 10*3/uL (4.8-10.8)
[2022-05-22 07:57] LABS: VITAMIN D, 25-HYDROXY 29.8 ng/mL (30-100)
[2022-05-22 08:00] VITALS: BP 133/85
[2022-05-22] MEDS ORDERED: XARE20MG PO (11:44)
[2022-05-22] MEDS ORDERED: BUFFERED ASPIR325 M3 PO (11:47)
[2022-05-22 12:00] VITALS: BP 129/86
== END 2022-05-22 13:31 | disposition home or self-care (01) | DRG 605 ==
LOC: ED 13:19 → EDHOLD 17:12 → 4E 20:31
PROVIDERS: Emergency Medicine; Student in an Organized Health Care Education/Training Program; ADMIT Student in an Organized Health Care Education/Training Program; ATTEND Student in an Organized Health Care Education/Training Program
PROC: 0HBRXZZ Excision of Toe Nail, External Approach (ICD-10-PCS; principal; 2022-05-22)
PROC: 0HBRXZZ Excision of Toe Nail, External Approach (ICD-10-PCS; 2022-05-22)
PROC: 0HBRXZZ Excision of Toe Nail, External Approach (ICD-10-PCS; 2022-05-22)
PROC: 0HBRXZZ Excision of Toe Nail, External Approach (ICD-10-PCS; 2022-05-22)
PROC: 0HBRXZZ Excision of Toe Nail, External Approach (ICD-10-PCS; 2022-05-22)
PROC: 0HBRXZZ Excision of Toe Nail, External Approach (ICD-10-PCS; 2022-05-22)
PROC: 0HBRXZZ Excision of Toe Nail, External Approach (ICD-10-PCS; 2022-05-22)
PROC: 0HBRXZZ Excision of Toe Nail, External Approach (ICD-10-PCS; 2022-05-22)
PROC: 0HBRXZZ Excision of Toe Nail, External Approach (ICD-10-PCS; 2022-05-22)
PROC: 0HBRXZZ Excision of Toe Nail, External Approach (ICD-10-PCS; 2022-05-22)
DX: S81.801A Unspecified open wound, right lower leg, initial encounter (principal); E44.0 Moderate protein-calorie malnutrition; E87.3 Alkalosis; I50.30 Unspecified diastolic (congestive) heart failure; M94.0 Chondrocostal junction syndrome [Tietze]; R06.89 Other abnormalities of breathing; E83.41 Hypermagnesemia; I48.91 Unspecified atrial fibrillation; B35.1 Tinea unguium; J44.9 Chronic obstructive pulmonary disease, unspecified; E78.5 Hyperlipidemia, unspecified; R73.9 Hyperglycemia, unspecified; I11.0 Hypertensive heart disease with heart failure; R29.6 Repeated falls; Z87.891 Personal history of nicotine dependence; Z82.49 Family history of ischemic heart disease and other diseases of the circulatory system; Z79.82 Long term (current) use of aspirin; Z68.36 Body mass index [BMI] 36.0-36.9, adult; X58.XXXA Exposure to other specified factors, initial encounter; Y93.89 Activity, other specified; Y92.89 Other specified places as the place of occurrence of the external cause; Y99.8 Other external cause status

== ENCOUNTER 2022-06-05 15:59 | Emergency (ER) | payer MEDICARE, BC ==
[~2022-06-05] VITALS: Wt 136.1 kg
[~2022-06-05 15:59] MED LIST changes: +BUFFERED ASPIR325 M3 PO
[2022-06-05 16:15] VITALS: BP 139/94
[2022-06-05 17:11] LABS: BASO % 0.4 % (0.0-1.0); EOS # 0.1 10*3/uL (0.0-0.4); EOS % 0.9 % (1.0-4.0); LYMPH # 1.8 10*3/uL (1.3-4.4); LYMPH % 23.3 % (27.0-41.0); MEAN CORPUSCULAR HGB 29.5 pg (27.0-31.0); MEAN CORPUSCULAR HGB CONC 31.1 g/dl (33.0-37.0); MEAN PLATELET VOLUME 10.2 fl (9.6-12.3); MONO # 1.1 10*3/uL (0.1-1.0); MONO % 13.9 % (3.0-9.0); NEUT # 4.8 10*3/uL (2.3-7.9); NEUT % 60.9 % (47.0-73.0); PLATELET COUNT AUTOMATED 227 10*3/uL (130-400); RED BLOOD COUNT 4.84 10*6/uL (4.50-5.90); RED CELL DISTRI WIDTH 14.7 % (0-14.5); WHITE BLOOD COUNT 7.9 10*3/uL (4.8-10.8)
[2022-06-05 17:21] LABS: BILIRUBIN Negative (Negative); BLOOD Negative (Negative); CLARITY Clear (Clear); COLOR Yellow (Yellow); GLUCOSE Negative (Negative); KETONE Negative (Negative); LEUKO ESTERASE Negative (Negative); NITRITE Negative (Negative); PH 6.5 (4.5-8.0); UROBILINOGEN 0.2 E.U./dl (0.0-1.0)
[2022-06-05 17:29] LABS: ALKALINE PHOSPHATASE 95 U/L (45-117); BUN 23 mg/dl (7-24); CHLORIDE 109 mmol/L (98-107); CREATININE 1.28 mg/dL (0.70-1.30); POTASSIUM 4.4 mmol/L (3.5-5.1); SGOT/AST 28 IU/L (3-35); SGPT/ALT 19 U/L (12-78); SODIUM 143 mmol/L (136-145); TOTAL PROTEIN 6.4 gm/dL (6.4-8.2)
[2022-06-05 17:43] LABS: BACTERIA 1+; EPITHELIAL CELLS 0-2; HYALINE CAST 0-2; WBC 0-2 wbc/hpf (0-5)
[2022-06-19] MEDS ORDERED: METOPROLOL SUCC25 M2 PO (03:58)
== END 2022-06-05 21:33 | disposition home or self-care (01) ==
LOC: ED 15:59
PROVIDERS: Emergency Medicine
DX: K12.2 Cellulitis and abscess of mouth (principal); Z79.899 Other long term (current) drug therapy; Z87.891 Personal history of nicotine dependence

== ENCOUNTER → 2022-06-12 | Outpatient (CLI) | payer MEDICARE, BC ==
[~2022-06-12] MED LIST changes: +METOPROLOL SUCC25 M2 PO
== END | disposition home or self-care (01) ==
LOC: RESCLI 00:58
PROVIDERS: ATTEND Emergency Medicine
DX: I11.0 Hypertensive heart disease with heart failure (principal); I50.9 Heart failure, unspecified; I48.91 Unspecified atrial fibrillation; B37.0 Candidal stomatitis; E55.9 Vitamin D deficiency, unspecified; M19.90 Unspecified osteoarthritis, unspecified site; Z79.899 Other long term (current) drug therapy; Z79.01 Long term (current) use of anticoagulants

== ENCOUNTER → 2022-08-28 | Outpatient (CLI) | payer MEDICARE, BC ==
[~2022-08-28] MED LIST changes: +ASPIRIN ADULT L81 M2 PO; +ATORVASTATIN CA10 M1 PO; +JARDIANCE10 MG PO
== END | disposition home or self-care (01) ==
LOC: RESCLI 00:20
PROVIDERS: ATTEND Student in an Organized Health Care Education/Training Program
DX: I11.0 Hypertensive heart disease with heart failure (principal); G47.00 Insomnia, unspecified; I50.9 Heart failure, unspecified; I48.91 Unspecified atrial fibrillation; E55.9 Vitamin D deficiency, unspecified; M19.90 Unspecified osteoarthritis, unspecified site; Z98.890 Other specified postprocedural states; Z79.01 Long term (current) use of anticoagulants; Z79.899 Other long term (current) drug therapy

== ENCOUNTER → 2022-12-04 | Outpatient (CLI) | payer MEDICARE, BC ==
[2022-12-04 17:08] LABS: BASO % 0.5 % (0.0-1.0); EOS % 0.3 % (1.0-4.0); LYMPH # 1.5 10*3/uL (1.3-4.4); LYMPH % 19.3 % (27.0-41.0); MEAN CELL VOLUME 95.1 fl (80.0-94.0); MEAN CORPUSCULAR HGB 30.5 pg (27.0-31.0); MEAN CORPUSCULAR HGB CONC 32.1 g/dl (33.0-37.0); MONO # 0.9 10*3/uL (0.1-1.0); MONO % 11.6 % (3.0-9.0); NEUT # 5.3 10*3/uL (2.3-7.9); NEUT % 67.4 % (47.0-73.0); PLATELET COUNT AUTOMATED 209 10*3/uL (130-400); RED BLOOD COUNT 5.47 10*6/uL (4.50-5.90); RED CELL DISTRI WIDTH 14.4 % (0-14.5); WHITE BLOOD COUNT 7.8 10*3/uL (4.8-10.8)
[2022-12-04 17:27] LABS: BUN 22 mg/dl (9-23); CHLORIDE 104 mmol/L (98-107)
== END | disposition home or self-care (01) ==
LOC: RESCLI 05:00
PROVIDERS: Internal Medicine; ATTEND Internal Medicine
DX: I11.0 Hypertensive heart disease with heart failure (principal); I50.9 Heart failure, unspecified; I48.91 Unspecified atrial fibrillation; M19.90 Unspecified osteoarthritis, unspecified site; Z98.890 Other specified postprocedural states; Z79.899 Other long term (current) drug therapy; Z79.01 Long term (current) use of anticoagulants

== ENCOUNTER → 2023-06-09 | Outpatient (CLI) | payer MEDICARE, BC ==
[~2023-06-09] MED LIST changes: +AMOX-CLAV 875-1 EACH PO; +PREDNISONE20 M1 PO
== END | disposition home or self-care (01) ==
LOC: RESCLI 13:15
PROVIDERS: ATTEND Student in an Organized Health Care Education/Training Program
DX: I50.9 Heart failure, unspecified (principal); I48.91 Unspecified atrial fibrillation; R53.1 Weakness; R73.09 Other abnormal glucose; Z79.01 Long term (current) use of anticoagulants; Z98.890 Other specified postprocedural states; Z79.899 Other long term (current) drug therapy

== ENCOUNTER 2023-06-14 16:23 | Emergency (ER) | payer MEDICARE, BC ==
[~2023-06-14] VITALS: Ht 182.8 cm
[~2023-06-14 16:23] MED LIST changes: -AMOX-CLAV 875-1 EACH PO; -PREDNISONE20 M1 PO
[2023-06-14 17:20] LABS: BASO % 0.5 % (0.0-1.0); EOS # 0.1 10*3/uL (0.0-0.4); EOS % 1.2 % (1.0-4.0); HEMATOCRIT 48.5 % (42.0-52.0); LYMPH # 2.5 10*3/uL (1.3-4.4); LYMPH % 30.4 % (27.0-41.0); MEAN CELL VOLUME 99.8 fl (80.0-94.0); MEAN CORPUSCULAR HGB 31.7 pg (27.0-31.0); MEAN CORPUSCULAR HGB CONC 31.8 g/dl (33.0-37.0); MEAN PLATELET VOLUME 10.9 fl (9.6-12.3); MONO # 0.8 10*3/uL (0.1-1.0); NEUT # 4.6 10*3/uL (2.3-7.9); NEUT % 57.4 % (47.0-73.0); PLATELET COUNT AUTOMATED 196 10*3/uL (130-400); RED BLOOD COUNT 4.86 10*6/uL (4.50-5.90); RED CELL DISTRI WIDTH 13.4 % (0-14.5); WHITE BLOOD COUNT 8.1 10*3/uL (4.8-10.8)
[2023-06-14 17:29] LABS: BILIRUBIN Negative (Negative); BLOOD Negative (Negative); CLARITY Clear (Clear); COLOR Yellow (Yellow); GLUCOSE Negative (Negative); KETONE Negative (Negative); LEUKO ESTERASE Negative (Negative); NITRITE Negative (Negative); PH 7.5 (4.5-8.0); SPECIFIC GRAVITY <= 1.005 (1.001-1.030); UROBILINOGEN 0.2 E.U./dl (0.0-1.0)
[2023-06-14 17:30] LABS: ACT PARTIAL THROMBO TIME 29.1 SECONDS (20.0-32.1); INTERNATIONAL NORM RATIO 1.1 (2.0-3.5)
[2023-06-14 17:40] LABS: RBC 0-2 rbc/hpf (0-2); WBC 0-2 wbc/hpf (0-5)
[2023-06-14 17:42] LABS: ALKALINE PHOSPHATASE 109 U/L (46-116); BUN 15 mg/dl (9-23); CHLORIDE 104 mmol/L (98-107); LIPASE 79 U/L (12-53); POTASSIUM 3.5 mmol/L (3.4-5.1); SGPT/ALT 15 U/L (10-49); TOTAL PROTEIN 6.5 gm/dL (6.0-8.0)
[2023-06-14 18:21] VITALS: BP 135/82
[2023-06-14] MEDS ORDERED: PREDNISONE20 M1 PO (18:34)
[2023-06-14] MEDS ORDERED: AMOX-CLAV 875-1 EACH PO (18:34)
== END 2023-06-14 18:40 | disposition home or self-care (01) ==
LOC: ED 16:23
PROVIDERS: Internal Medicine
DX: J44.1 Chronic obstructive pulmonary disease with (acute) exacerbation (principal); F03.90 Unspecified dementia, unspecified severity, without behavioral disturbance, psychotic disturbance, mood disturbance, and anxiety; I11.0 Hypertensive heart disease with heart failure; I50.9 Heart failure, unspecified; E78.5 Hyperlipidemia, unspecified; K21.9 Gastro-esophageal reflux disease without esophagitis; Z90.49 Acquired absence of other specified parts of digestive tract; Z98.890 Other specified postprocedural states; Z87.891 Personal history of nicotine dependence

== ENCOUNTER 2023-09-26 08:56 | Emergency (ER) | payer MEDICARE, BC ==
[~2023-09-26] VITALS: Wt 117.0 kg
[~2023-09-26 08:56] MED LIST changes: +ALDACTONE25 MG PO; +AMOX-CLAV 875-1 EACH PO; +PREDNISONE20 M1 PO; +VITAMIN D350 MCG PO
[2023-09-26 09:44] LABS: BASO % 0.1 % (0.0-1.0); EOS % 0.1 % (1.0-4.0); HEMATOCRIT 48.5 % (42.0-52.0); LYMPH # 0.8 10*3/uL (1.3-4.4); LYMPH % 9.4 % (27.0-41.0); MEAN CELL VOLUME 98.4 fl (80.0-94.0); MEAN CORPUSCULAR HGB CONC 31.5 g/dl (33.0-37.0); MEAN PLATELET VOLUME 10.9 fl (9.6-12.3); MONO % 10.8 % (3.0-9.0); NEUT % 79.1 % (47.0-73.0); PLATELET COUNT AUTOMATED 194 10*3/uL (130-400); RED BLOOD COUNT 4.93 10*6/uL (4.50-5.90); RED CELL DISTRI WIDTH 13.9 % (0-14.5); WHITE BLOOD COUNT 8.8 10*3/uL (4.8-10.8)
[2023-09-26 09:56] LABS: ACT PARTIAL THROMBO TIME 27.6 SECONDS (20.0-32.1)
[2023-09-26 10:08] LABS: ALKALINE PHOSPHATASE 88 U/L (46-116); BUN 19 mg/dl (9-23); CHLORIDE 106 mmol/L (98-107); POTASSIUM 3.8 mmol/L (3.4-5.1); SGPT/ALT 17 U/L (5-49); TOTAL PROTEIN 6.5 gm/dL (6.0-8.0)
[2023-09-26 10:12] LABS: ETHYL ALCOHOL < 3.0 mg/dl (<3)
[2023-09-26 11:21] LABS: BILIRUBIN Negative (Negative); BLOOD Negative (Negative); CLARITY Clear (Clear); COLOR Yellow (Yellow); GLUCOSE Negative (Negative); KETONE 1+ (Negative); LEUKO ESTERASE Negative (Negative); NITRITE Negative (Negative)
[2023-09-26 11:43] LABS: URINE AMPHETAMINES Negative (1000ng/ml); URINE BARBITURATES Negative (200ng/ml); URINE BENZODIAZEPINES Negative (200ng/ml); URINE CANNABINOIDS (THC) Negative (50ng/ml); URINE COCAINE Negative (300ng/ml); URINE METHADONE Negative (300ng/ml); URINE OPIATES Negative (300ng/ml); URINE PHENCYCLIDINE Negative (25ng/ml)
[2023-09-26 11:45] LABS: BACTERIA TRACE; EPITHELIAL CELLS 0-2; WBC 0-2 wbc/hpf (0-5)
[2023-09-26 12:00] VITALS: BP 135/88
== END 2023-09-26 12:26 | disposition short-term general hospital (02) ==
LOC: ED 08:56
PROVIDERS: Family Medicine
DX: I11.0 Hypertensive heart disease with heart failure (principal); I50.9 Heart failure, unspecified; I63.9 Cerebral infarction, unspecified; D68.318 Other hemorrhagic disorder due to intrinsic circulating anticoagulants, antibodies, or inhibitors; I48.91 Unspecified atrial fibrillation; J44.9 Chronic obstructive pulmonary disease, unspecified; Z79.899 Other long term (current) drug therapy; Z98.890 Other specified postprocedural states; Z90.49 Acquired absence of other specified parts of digestive tract; Z87.891 Personal history of nicotine dependence; Z20.822 Contact with and (suspected) exposure to COVID-19